=== PATIENT | female | born 1990 | race Caucasian/White ===

== ENCOUNTER 2018-10-06 19:56 | Emergency (ER) | payer OTHER, SELFPAY ==
[2018-10-06 19:57] VITALS: BP 130/90; PULSE 122; RESP 18; TEMP 36.2; O2SAT 100; BMI 33.7
--- NOTE | 2018-10-06 20:03 | EKG12_ITS ---
Test Reason : NUMB/TING Blood Pressure : / mmHG Vent. Rate : 106 BPM Atrial Rate : 106 BPM P-R Int : 156 ms QRS Dur : 084 ms QT Int : 334 ms P-R-T Axes : 019 046 019 degrees QTc Int : 443 ms Sinus tachycardia Otherwise normal ECG Confirmed by MARIAJOSE WOLFE, JUAN ([id number]), editor at large SUNIL QUEEN ([id number]) on 10/10/2018 4:45:39 PM Referred By: ZAIN Confirmed By:JUAN BILLY MD
[2018-10-06 20:15] LABS: Bedside Glucose 97 mg/dL (70-110)
[2018-10-06 20:19] VITALS: BP 152/104; PULSE 118; RESP 15; O2SAT 96
--- NOTE | 2018-10-06 20:25 | CT_ITS ---
STUDY: CT BRAIN WITHOUT CONTRAST REASON FOR EXAM: Female, 27 years old. Visual disturbance and arm pain RADIATION DOSAGE (If Supplied By Facility): CTDIvol = ( 44.99 ) mGy, DLP = ( 762.36 ) mGycm TECHNIQUE: Transaxial CT imaging of the brain was performed without administration of intravenous contrast material. Individualized dose optimization techniques were used for this CT. COMPARISON: None. FINDINGS: Normal soft tissue structures. Normal calvarium. Normal size ventricles and extra-axial spaces for the patient's age. Normal white matter tracts of the cerebral hemispheres. Normal basal ganglia and thalami. Normal brainstem. Normal cerebellum. There is no intracranial hemorrhage. There are no findings of an acute ischemic infarction. Normal visualized paranasal sinuses. CT/Brain/Head without Contrast IMPRESSION: Normal unenhanced CT scan of the brain. Electronically Signed: Babak Miles MD at 22:15 EST Tel , Service support ,
[2018-10-06 21:00] LABS: Absolute Lymphocyte Count 2.25 X10^3/ul (0.83-4.51); Absolute Neutrophil Count 4.3 X10^3/uL (2.0-7.7); Basophil# 0.02 X10^3/uL; Basophil% 0.3 % (0-1); Eosinophil# 0.09 X10^3/uL; Eosinophils% 1.2 % (0-5); Hematocrit 43.5 % (37-47); Hemoglobin 14.4 g/dl (12.0-15.0); Lymphocyte # 2.25 X10^3/ul (4.0); Lymphocyte % 31.2 % (19-41); Mean Corp Hgb Conc 33.1 g/gl (32-36); Mean Corpuscular Hgb 30.6 pg (27.0-32.0); Mean Corpuscular Volume 92.4 fL (81-99); Mean Platelet Vol. 11.7 fl (6.2-12.0); Monocyte# 0.52 X10^3/uL; Monocyte% 7.2 % (0-10); Neutrophil # 4.28 X10^3/uL (2.7-7.7); Neutrophil % 59.4 % (47-70); Platelet Count 180 K/mm3 (150-450); RBC Distribution Width CV 13.3 % (11.6-14.6); RBC Distribution Width SD 44.6 fl (35.1-43.9); Red Blood Count 4.71 M/mm3 (4.2-5.4); White Blood Count 7.2 K/mm3 (4.4-11.0)
--- NOTE | 2018-10-06 21:00 | RAD_ITS ---
STUDY: X-RAY CHEST REASON FOR EXAM: Female, 27 years old. Numbness in arms and coughing for 2 weeks TECHNIQUE: Frontal and lateral views of the chest. COMPARISON: None. FINDINGS: The lungs are clear and expanded. There is no demonstrated pleural abnormality. Normal size heart. Normal mediastinum and lázaro. Normal visualized pulmonary arteries. Normal visualized aortic arch and descending thoracic aorta. Normal visualized thoracic spine. Normal visualized ribs, clavicles, and shoulders. There is no demonstrated abnormality of the visualized soft tissue structures of the upper abdomen. RAD/Chest PA and Lateral IMPRESSION: Normal x-ray examination of the chest. Electronically Signed: Babak Miles MD at 22:28 EST Tel , Service support ,
[2018-10-06 21:03] LABS: Differential Indicated SCAN CRITERIA MET; POSITIVE COUNT YES; POSITIVE DIFFERENTIAL NO; POSITIVE MORPHOLOGY NO
[2018-10-06 21:05] LABS: Anion Gap 6 (5-15); BUN 12 mg/dL (7-18); BUN/Creat Ratio 16.7 RATIO (10-20); Calcium,Total 8.9 mg/dL (8.5-10.1); Chloride 108 mmol/L (98-107); Creatinine, Serum 0.72 mg/dL (0.55-1.02); EST Glomerular Filtration Rate 104 mL/min (>60); Est Glom Filt Rate - Afr Amer 126 mL/min (>60); Estimated Creatinine Clearance 102.25 ml/min; Glucose 91 mg/dL (74-106); Potassium 4.5 mmol/L (3.5-5.1); Sodium Level 136 mmol/L (136-145)
[2018-10-06 21:08] LABS: International Normalized Ratio 0.9; Partial Thromboplast Time 28.9 Seconds (24.1-36.2); Prothrombin Time (Protime)PT. 11.8 SECONDS (11.7-14.9)
[2018-10-06 21:14] LABS: Differential Comment SCANNED
[2018-10-06 21:37] LABS: Pregnancy, Serum, hCG Quali. NEGATIVE Negative (0-9 Nonpreg)
[2018-10-06 22:00] VITALS: BP 139/102; PULSE 105; RESP 16; O2SAT 97
--- NOTE | 2018-10-06 23:12 | ED.VISSUMM ---
- ER Visit Summary Date of Service: 10/06/18 Chief Complaint: Left arm pain and paresthesias History of Present Illness: The patient is a 27 F who presents with tingling and pain in her left shoulder and arm. Patient admits to some slight weakness. Patient denies any trauma or injury. Patient does admit to a headache. Patient states this is different from her migraine headaches. Patient states her headache is over the left side of her head. Patient also admits to a cough with some clear sputum. Patient denies any trauma or injury. Patient denies any lower extremity paresthesias or weakness. Physical Examination: Vital signs are stable. Patient is afebrile. Patient is in no acute distress. Oral mucosa is pink and moist. Neck is supple. Trachea is midline. There is no JVD noted. Heart was regular rate and rhythm. Lungs are clear and equal bilateral. Abdomen is soft. Bowel sounds are normal. There is no tenderness. There is no guarding noted. Skin is warm dry. Cranial nerves II through XII are intact. Strength is 5/5 bilaterally upper and lower extremities. There are no sensory deficits noted. Deep tendon reflexes were 2+/4 bilaterally. The remaining physical exam is within normal limits. Test Results: CT scan of the brain was obtained and was negative. EKG showed normal sinus rhythm with a rate of 106. There are no acute ST or T wave changes noted. CBC, basic metabolic profile, PT with INR, and PTT were obtained and were all normal. HCG was negative. PA and lateral chest x-ray was obtained and was normal. Emergency Department Course and Treatment: Patient was given a dose of morphine here for pain. Patient had no further focal deficits noted. Patient was given a prescription for prednisone. Patient was instructed to follow-up with her primary care physician in 5-7 days. Patient understood and was agreeable with the plan. All questions were answered. Disposition: Discharge home Impression: Paresthesias left upper extremity This note was generated with [employer] dictation software. It may contain incorrect words, spelling, and punctuation that were not noted in review of the chart prior to signing ED Disposition - Plan for ED Patient: Disposition: Home or Assisted Living Diagnosis: Paresthesias in left hand Instructions: ED Neuropathy Peripheral Prescriptions: predniSONE tablet 60 mg PO DAILY #15 tab Referrals: Lucas Reeves MD [Primary Care Provider] -
[2018-10-06 23:24] VITALS: BP 134/94; PULSE 89; RESP 20; O2SAT 98
[2018-10-06] MEDS: Morphine 4 MG/ML Syringe IV (23:24)
[2018-10-06] MEDS: predniSONE 20 MG Tablet 60 MG PO (23:27)
[2018-10-07 00:06] VITALS: BP 123/78; PULSE 72; RESP 16; O2SAT 100
== END 2018-10-07 00:07 | disposition home or self-care (01) ==
PROVIDERS: Emergency Provider Emergency Medicine; Family Provider Family Medicine; PCP Family Medicine
DX: R20.2 Paresthesia of skin (principal)
CPT/HCPCS: 70450; 71046; 80048; 82962; 84703; 85025; 85610; 85730; 93005; 96374; 99285; A4216

== ENCOUNTER 2018-10-17 15:28 | Emergency (ER) | payer OTHER, SELFPAY ==
[2018-10-17 15:29] VITALS: BP 152/97; PULSE 111; RESP 17; TEMP 36.4; O2SAT 99; BMI 33.3
--- NOTE | 2018-10-17 15:50 | MRI_ITS ---
STUDY: MRA NECK WITH AND WITHOUT CONTRAST REASON FOR EXAM: Female, 27 years old. Headaches and neck pain TECHNIQUE: 3-D ouef-na-oqxilo (TOF) imaging was performed in an 1.5 T MRI scanner. Gadavist 7 IV was administered for the contrast enhanced images. COMPARISON: None. FINDINGS: RIGHT CAROTID ARTERIES: Normal right common carotid artery (CCA). Normal right common carotid bulb. Normal origin of the right internal carotid (ICA) artery without a hemodynamically significant stenosis. Normal visualized cervical portion of the right internal carotid artery. Normal origin of the right external carotid artery (ECA). LEFT CAROTID ARTERIES: Normal left common carotid artery (CCA). Normal left common carotid bulb. Normal origin of the left internal carotid (ICA) artery without a hemodynamically significant stenosis. Normal visualized cervical portion of the left internal carotid artery. Normal origin of the left external carotid artery (ECA). VERTEBRAL ARTERIES: Normal antegrade flow within the bilateral vertebral artery without a hemodynamically significant stenosis. MRI/MRA Neck WITH and W/O Contrast IMPRESSION: Normal bilateral cervical carotid and vertebral arteries. Electronically Signed: Darryn Calzada MD at 18:29 EST , Service support ,
--- NOTE | 2018-10-17 15:50 | MRI_ITS ---
STUDY: MRI BRAIN WITH AND WITHOUT CONTRAST REASON FOR EXAM: Female, 27 years old. Headache with blurred vision and neck pain TECHNIQUE: Standardized multiplanar fat and water weighted pulse sequences were obtained. Gadavist 7 IV was administered for the contrast portion of the examination. COMPARISON: None. FINDINGS: Normal size of the ventricles and extra-axial spaces for the patient's age. Normal white matter tracts of the supratentorial brain. Normal bilateral basal ganglia. Normal thalami. There is no extra-axial fluid accumulation. Normal flow voids within the major intracranial circulation suggesting patency by spin echo criteria. Normal venous enhancement. There is no enhancing intra-axial or extra-axial abnormality. Normal sella turcica, pituitary gland, infundibular stalk, optic chiasm and hypothalamus. Normal tectal plate and pineal gland. Normal midbrain, elena and medulla. Normal cerebellum. Normal basal cisterns. Normal bilateral temporal bones. Normal bilateral internal auditory canals. No demonstrated orbital abnormality, within the constraints of a routine brain study. Normal visualized paranasal sinuses. Normal calvarium and skull base. Normal visualized soft tissue structures. Normal visualized upper cervical spine. MRI/Brain W/WO Contrast IMPRESSION: Normal unenhanced and enhanced MRI of the brain. Electronically Signed: Darryn Calzada MD at 18:25 EST , Service support ,
--- NOTE | 2018-10-17 15:53 | MRI_ITS ---
STUDY: MRA OF THE HEAD WITHOUT CONTRAST REASON FOR EXAM: Female, 27 years old. Headache and blurred vision TECHNIQUE: 3-D yuuv-qa-iqyjju (TOF) imaging was performed with MIPs. The study was performed unenhanced. COMPARISON: None. FINDINGS: Normal bilateral petrous carotid arteries. Normal right cavernous carotid artery with a normal supraclinoid bifurcation. Normal left cavernous carotid artery with a normal supraclinoid bifurcation. Normal right A1 segments of the anterior cerebral artery. Normal left A1 segments of the anterior cerebral artery. Normal intact anterior communicating artery (ACOM). Normal bilateral A2 segments of the anterior cerebral arteries. Normal right M1 and M2 segments of the middle cerebral arteries, with a normal M1 bifurcation. Normal left M1 and M2 segments of the middle cerebral arteries, with a normal M1 bifurcation. Normal right posterior communicating artery (PCOM). Left posterior communicating artery not visualized consistent with normal variant Normal bilateral vertebral arteries. Normal basilar artery with a normal basilar bifurcation. The visualized bilateral superior cerebellar (SCA) arteries are normal. Normal bilateral P1, P2 and visualized P3 segments of the posterior cerebral arteries. There is no demonstrated aneurysm of the [place] of [place]. There is no major vessel occlusion or hemodynamically significant stenosis. There is no demonstrated abnormality of the visualized brain. MRI/MRA Head ONLY without Contrast IMPRESSION: Normal MRA of the head Electronically Signed: Darryn Calzada MD at 18:27 EST , Service support ,
--- NOTE | 2018-10-17 15:54 | ED.VISSUMM ---
- ER Visit Summary Date of Service: 10/17/18 Chief Complaint: [] Left-sided headache, visual disturbance, left neck pain, left arm numbness and weakness intermittent symptoms for weeks History of Present Illness: The patient is a 27 F [] his past history reports she has had the above symptoms for weeks, she was seen in the emergency department recently labs head CT were negative she was referred to her primary care physician who could not see her until sometime next week she had recurrence of all the above and she came back to the emergency department today for evaluation Indicates she will suddenly have a sense of pain to her head decreased vision to the left eye, and a sense that there is shooting discomfort down her left lower extremity, she has no right-sided symptoms, these episodes are very transient she is currently not having any she also reports when she tries to turn her head to the left it causes some very mild pain but does not reproduce her left arm discomfort, she has no past history no fever no cough 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 has had no injury denies being but she indicates she does have a history of intermittent headache disorder, not clear if she actually is never diagnosed with migraine headaches Physical Examination: [] 155/80 General, no distress resting comfortably HEENT is generally unremarkable The neck is supple no adenopathy, she is able to rotate her head left and right when she turns to the left she complains of limited range of motion the carotid upstrokes are normal there is no pain to palpation of the neck or the anterior neck, or the posterior C-spine Cardiovascular, regular rate and rhythm Lungs, clear bilateral Abdomen, soft nontender Extremities, no clubbing cyanosis or edema, upper and lower extremities have full range of motion normal pulses Neurologic, awake alert answering questions appropriately moving all 4 extremities her cranial nerves are normal motor sensory cerebellar normal NIH 0 Test Results: [] Emergency Department Course and Treatment: [] Explained to her given all the above the differentials rather extensive she presents again with similar symptoms she was unable to see her family physicians for outpatient management given all the above will obtain MRI screening labs and reevaluate The patient had an MRA head and neck, MRI brain, the studies were unremarkable showing no signs of stroke tumor aneurysm normal carotids I had a long conversation with the patient and I spent to the exact etiology of all the above is unclear I question whether she had a history of chronic headache or migraine disorder she was not really sure during her visit last time to the ED suggest that she did have migraine headaches at this time since will be instructed follow-up with all of her outpatient providers for further management, she will be given a referral to Dr. Sharpe of neurology she will continue to use whatever normal medication she uses for headaches while she is comfortable with this plan Treatment Plan: [] Disposition: [] Home stable, please note later the patient did recall always having migraine headaches, she indicates to me she could not get the point with her physicians for management and then indicated to nurses she had an appointment tomorrow with her outpatient providers Impression: [] Intermittent left-sided headache causing left upper extremity paresthesias, left-sided neck discomfort This note was generated with [employer] dictation software. It may contain incorrect words, spelling, and punctuation that were not noted in review of the chart prior to signing ED Disposition - Plan for ED Patient: Instructions: ED Cephalgia Unspecified, ED Neuropathy Peripheral Referrals: Dillan Sharpe MD [STAFF PHYSICIAN] - Lucas Reeves MD [Primary Care Provider] - Additional Instructions: Follow-up with all of your outpatient providers make an appoint to see Dr. Sharpe of neurology and return for change in symptoms
[2018-10-17 16:12] LABS: Absolute Lymphocyte Count 3.38 X10^3/ul (0.83-4.51); Absolute Neutrophil Count 5.9 X10^3/uL (2.0-7.7); Basophil# 0.04 X10^3/uL; Basophil% 0.4 % (0-1); Eosinophil# 0.09 X10^3/uL; Eosinophils% 0.9 % (0-5); Hematocrit 44.4 % (37-47); Hemoglobin 14.4 g/dl (12.0-15.0); Lymphocyte # 3.38 X10^3/ul (4.0); Lymphocyte % 32.4 % (19-41); Mean Corp Hgb Conc 32.4 g/gl (32-36); Mean Corpuscular Hgb 30.6 pg (27.0-32.0); Mean Corpuscular Volume 94.3 fL (81-99); Mean Platelet Vol. 10.3 fl (6.2-12.0); Monocyte# 0.89 X10^3/uL; Monocyte% 8.5 % (0-10); Neutrophil % 56.6 % (47-70); POSITIVE COUNT NO; POSITIVE DIFFERENTIAL NO; POSITIVE MORPHOLOGY NO; Platelet Count 313 K/mm3 (150-450); RBC Distribution Width CV 13.4 % (11.6-14.6); RBC Distribution Width SD 44.6 fl (35.1-43.9); Red Blood Count 4.71 M/mm3 (4.2-5.4); White Blood Count 10.4 K/mm3 (4.4-11.0)
[2018-10-17 16:49] LABS: Anion Gap 10 (5-15); BUN 15 mg/dL (7-18); BUN/Creat Ratio 22.2 RATIO (10-20); Calcium,Total 8.6 mg/dL (8.5-10.1); Chloride 105 mmol/L (98-107); Creatinine, Serum 0.68 mg/dL (0.55-1.02); EST Glomerular Filtration Rate 111 mL/min (>60); Est Glom Filt Rate - Afr Amer 134 mL/min (>60); Estimated Creatinine Clearance 108.26 ml/min; Glucose 104 mg/dL (74-106); Potassium 3.5 mmol/L (3.5-5.1); Sodium Level 141 mmol/L (136-145)
[2018-10-17 18:26] VITALS: BP 122/83; PULSE 105; RESP 16; O2SAT 96
[2018-10-17] MEDS: HYDROcodone Bitartrate/Apap 5/325 Tablet PO (18:26)
--- NOTE | 2018-10-17 19:07 | ED.DEP ---
ED Disposition - Plan for ED Patient: Instructions: ED Neuropathy Peripheral, ED Cephalgia Unspecified Referrals: Lucas Reeves MD [Primary Care Provider] - Dillan Sharpe MD [STAFF PHYSICIAN] - Additional Instructions: Follow-up with all of your outpatient providers make an appoint to see Dr. Sharpe of neurology and return for change in symptoms
--- NOTE | 2018-10-17 19:37 | ED.RN ---
THIS RN ENTERRED PT ROOM TO DISCHARGE PT. PT CRYING HYSTERICALLY SAYING, WHY WON'T HE HELP ME, HE IS NOT HELPING ME. PT REORTS THAT SHE IS HAVING CONTINUED HEADACHE, THE MEDICATION SHE RECEIVED WAS NOT HELPFUL. PT HYPERVENTILATING ASKING FOR SOMETHING FOR PAIN AND ANXIETY. THIS RN LEFT PT IN SAFE PLACE, AND SPOKE WITH DR. MENSAH. PER DR. MENSAH, PT IS NOT RECEIVING ANY MORE MEDICATION, SHE NEEDS TO FOLLOW UP WITH PRIMARY CARE AND NEUROLOGY FOR CHRONIC ISSUES. HER TESTS TODAY WERE NEGATIVE, AND WE DO NOT USE NARCOTICS TO TREAT MIGRAINE PAIN. THIS RN RE-ENTERED PT ROOM TO DISCHARGE PT. COMTINUED COMPLAINTS THIS RN SPOKE WITH THEM EXPLAINING THE EXPLANATION GIVEN FROM DR. MENSAH. CHARGE NURSE AXEL INFORMED.
--- NOTE | 2018-10-17 19:52 | ED.RN ---
PT IS REFUSING TO LEAVE BECAUSE SHE WANTS MORE PAIN MEDICINE. IT WAS EXPLAINED THAT SHE NEEDS TO FOLLOW UP WITH HER PCP AND NEUROLOGIST. PT [facility]. PT WAS GIVEN A MARY DAVE REQUESTED. IV REMOVED AND GIVEN HER DC INSTRUCTIONS. PT'S S.O. VERBALIZED UNDERSTANDING.
== END 2018-10-17 19:56 | disposition home or self-care (01) ==
LOC: ED 16:00
PROVIDERS: Emergency Provider Emergency Medicine; Family Provider Family Medicine; PCP Family Medicine
DX: R51 Headache (principal); R20.2 Paresthesia of skin; R53.1 Weakness; H54.62 Unqualified visual loss, left eye, normal vision right eye
CPT/HCPCS: 70544; 70549; 70553; 80048; 85025; 99284; A9585; J7030; J7040

== ENCOUNTER → 2018-12-19 | Outpatient (CLI) | payer OTHER, SELFPAY ==
[2018-12-26 10:52] LABS: HPV Reflexed? NOT INDICATED
== END | disposition home or self-care (01) ==
LOC: LABSPEC 17:32
PROVIDERS: Family Provider Family Medicine; PCP Family Medicine; Visit Provider Obstetrics & Gynecology
DX: Z12.4 Encounter for screening for malignant neoplasm of cervix (principal)
CPT/HCPCS: 88175; G0145

== ENCOUNTER → 2018-12-20 | Outpatient (CLI) | payer OTHER, SELFPAY | END | disposition home or self-care (01) | LOC: LABSPEC 09:11 | PROVIDERS: Family Provider Family Medicine; PCP Family Medicine; Referring Provider Obstetrics & Gynecology; Visit Provider Obstetrics & Gynecology | DX: Z12.4 Encounter for screening for malignant neoplasm of cervix (principal) ==

== ENCOUNTER → 2020-02-05 | Outpatient (CLI) | payer OTHER, SELFPAY ==
[2020-02-05 20:15] LABS: Chlamydia Trachomatis by PCR Negative (Negative); Neisserai gonorrhoeae by PCR Negative (Negative); Probe Check PASS; Sample Adequacy Control PASS; Specimen Processing Control PASS
== END | disposition home or self-care (01) ==
PROVIDERS: Visit Provider Obstetrics & Gynecology
DX: Z11.3 Encounter for screening for infections with a predominantly sexual mode of transmission (principal)
CPT/HCPCS: 87491; 87591

== ENCOUNTER → 2020-02-19 11:57 | Outpatient (CLI) | payer OTHER, SELFPAY ==
[2020-02-19 14:00] LABS: Absolute Lymphocyte Count 1.65 X10^3/uL (0.83-4.51); Absolute Neutrophil Count 5.3 X10^3/uL (2.0-7.7); Basophil# 0.02 X10^3/uL; Basophil% 0.3 % (0-1); Color, Urine Yellow (Yellow); Eosinophil# 0.02 X10^3/uL; Eosinophils% 0.3 % (0-5); Glucose, Dipstick Normal (Normal); Hematocrit 42.5 % (37-47); Hemoglobin 14.1 g/dL (12.0-15.0); Leukocyte Esterase-Dipstick 500 /ul (Negative); Lymphocyte # 1.65 X10^3/ul (4.0); Mean Corp Hgb Conc 33.2 g/dL (32-36); Mean Corpuscular Hgb 30.3 pg (27.0-32.0); Mean Corpuscular Volume 91.4 fL (81-99); Mean Platelet Vol. 11.9 fl (6.2-12.0); Monocyte# 0.48 X10^3/uL; Monocyte% 6.4 % (0-10); NRBC Flagged by Analyzer 0 % (0-5); Neutrophil # 5.32 X10^3/uL (2.7-7.7); Neutrophil % 70.7 % (47-70); Nitrite-Dipstick Negative (Negative); Occult Blood-Urine 25 /ul (Negative); Platelet Count 255 K/mm3 (150-450); Protein-Dipstick 30 mg/dl (Negative); RBC Distribution Width CV 11.9 % (11.6-14.6); RBC Distribution Width SD 39.7 fl (35.1-43.9); Red Blood Count 4.65 M/mm3 (4.2-5.4); Specific Gravity, Urine 1.025 (1.002-1.030); Urine Bilirubin Dipstick Negative (Negative); Urine Clarity Turbid (Clear); Urine Urobilinogen 1 mg/dl (Normal); White Blood Count 7.5 K/mm3 (4.4-11.0)
[2020-02-19 14:11] LABS: Ketone-Dipstick 150 mg/dl (Negative)
[2020-02-19 14:18] LABS: Amphetamine Urine VISTA NEGATIVE (<1000 ng/mL); Barbiturate Urine VISTA NEGATIVE (< 200 ng/mL); Benzodiazepine Urine VISTA NEGATIVE (< 200 ng/mL); Cocaine Urine VISTA NEGATIVE (< 300 ng/mL); Ecstacy Urine VISTA NEGATIVE (< 500 ng/mL); Methadone Urine VISTA NEGATIVE (< 300 ng/mL); PCP Urine VISTA NEGATIVE (< 25 ng/mL); THC Urine VISTA NEGATIVE (< 50 ng/mL); Vista UDS pH Range 5
[2020-02-19 14:55] LABS: HIV - WCH Non-Reactive (Nonreactive); Hepatitis B Surface Antigen Non-Reactive (Nonreactive); Hepatitis C Antibody Non-Reactive (Nonreactive)
[2020-02-21 01:39] LABS: Prenatal RPR NONREACTIVE (NONREACTIVE)
== END ==
PROVIDERS: Visit Provider Obstetrics & Gynecology
DX: Z34.81 Encounter for supervision of other normal pregnancy, first trimester (principal)
CPT/HCPCS: 36415; 80307; 81002; 84443; 85025; 86703; 86762; 86803; 87340

== ENCOUNTER 2020-02-19 12:31 | Emergency (ER) | payer OTHER, SELFPAY ==
[2020-02-19 12:32] VITALS: BP 130/72; PULSE 93; RESP 15; TEMP 37.1; O2SAT 97; BMI 34.2
--- NOTE | 2020-02-19 12:55 | ED.VIS.GEN ---
History of Present Illness Chief Complaint: Nausea/Vomiting Informant: Patient Onset: Weeks Narrative: G2, P1 7 weeks 6-day gestation sent from OB office for concerns for dehydration and ketones in the urine. 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 Seen in the office today reported lost 10 pounds with ketones and sent here for IV fluids. Denies abdominal pain. Denies urinary symptoms. States heart tones 163 in the office. Denies any vaginal bleeding discharge or clots. Similar events with last . Prior similar symptoms: Yes Past Medical History - Allergies and Home Meds Allergies/Adverse Reactions: Allergies iodine Allergy (Verified 02/19/20 12:32) Hives Penicillins Allergy (Verified 02/19/20 12:32) Hives shellfish derived Allergy (Verified 02/19/20 12:32) Hives Primary Care Physician: [facility] Doctor,Out of [NON-STAFF] - Past Medical History: - - Hyperemesis gravidarum Smoking Status: Never smoker Review of Systems General: Denies: Chills, Fever, Sweats Eyes: Denies: Visual changes - bilaterally, Diplopia ENT: Denies: Rhinorrhea, Sore throat Cardiovascular: Denies: Chest pain, Palpitations Respiratory: Denies: Dyspnea, Cough, Dyspnea on exertion Gastrointestinal: Reports: Nausea, Vomiting. Denies: Abdominal pain, Diarrhea, Melena, Hematochezia Genitourinary: Denies: Dysuria, Hematuria, Frequency Musculoskeletal: Denies: Back pain, Extremity Pain Skin: Denies: Rash, Wounds Neurological: Denies: Headache, Weakness, Numbness Physical Exam Vital Signs/Narrative: Vital Signs Temp Pulse Resp BP Pulse Ox 02/19/20 12:32 98.7 F 93 15 130/72 H 97 Inital Vital Signs reviewed: Yes General: Well nourished, Well developed, No Acute Distress Head: Normocephalic, Atraumatic Eyes: Perrl, EOMI ENT: No rhinorrhea, - - Mild dry mucosal membranes Neck: Supple, Nontender Cardiovascular: Regular rate, Regular rhythm, No murmurs Respiratory: No distress, CTA bilaterally, Chest nontender Abdomen: Soft, Nontender, Nondistended, Normal bowel sounds Back: Nontender, Normal Inspection Extremities: Nontender, No edema Skin: Normal color, No rash Neurological: Alert, Oriented x3, Cranial nerves II-XII grossly intact, Normal Strength, Normal Sensation Psychological: Normal affect, Normal Mood Diagnostic/Tx/Re-eval Abnormal Lab Results 02/19/20 13:20 Sodium 137 Potassium 3.6 Chloride 102 Carbon Dioxide 26.0 Anion Gap 9 BUN 9 Creatinine 0.68 Estim Creat Clear Calc 106.36 Est GFR (MDRD) Af Amer 133 Est GFR (MDRD) Non-Af 110 BUN/Creatinine Ratio 13.3 Glucose 75 Calcium 9.1 - Medical Decision Making Patient nontoxic vital signs stable mild dry mucosal membranes. After history hyperemesis gravidarum. Order for 2 L of fluid, IV Phenergan. Electrolytes are normal. She is feeling better tolerating oral intake, pending urine analysis at this time for reevaluation. Plan to discharge home after results. Patient does have prescription of Phenergan and Zofran at home. ED Disposition - Plan for ED Patient: Disposition: Home or Assisted Living Diagnosis: Hyperemesis gravidarum, First trimester Instructions: Hyperemesis Gravidarum (Severe Morning Sickness) Referrals: [facility] Doctor,Out of [NON-STAFF] - Ling Byrd MD [STAFF PHYSICIAN] - 3-5 Days
[2020-02-19] MEDS: proMETHazine 25 MG/ML Syringe 12.5 MG IV ×2 (13:15→18:17)
[2020-02-19 13:42] LABS: Anion Gap 9 (5-15); BUN 9 mg/dL (7-18); BUN/Creat Ratio 13.3 RATIO (10-20); Calcium,Total 9.1 mg/dL (8.5-10.1); Chloride 102 mmol/L (98-107); Creatinine, Serum 0.68 mg/dL (0.55-1.02); EST Glomerular Filtration Rate 110 mL/min (>60); Est Glom Filt Rate - Afr Amer 133 mL/min (>60); Estimated Creatinine Clearance 106.36 ml/min; Glucose 75 mg/dL (74-106); Potassium 3.6 mmol/L (3.5-5.1); Sodium Level 137 mmol/L (136-145)
[2020-02-19] MEDS: 0.9% Normal Saline 1,000 ML 1000 ML IV ×2 (13:52→14:31)
[2020-02-19 15:00] VITALS: BP 128/78; PULSE 88; RESP 16; O2SAT 99
[2020-02-19] MEDS: 0.9% Normal Saline 1,000 ML 999 ML IV (16:16)
[2020-02-19 16:34] LABS: Color, Urine Yellow (Yellow); Glucose, Dipstick Normal (Normal); Leukocyte Esterase-Dipstick 100 /ul (Negative); Nitrite-Dipstick Negative (Negative); Occult Blood-Urine Negative /ul (Negative); Protein-Dipstick 15 mg/dl (Negative); Specific Gravity, Urine 1.025 (1.002-1.030); Urine Bilirubin Dipstick Negative (Negative); Urine Clarity Clear (Clear); Urine Urobilinogen Normal (Normal)
[2020-02-19 16:39] LABS: Ketone-Dipstick 150 mg/dl (Negative)
[2020-02-19 17:19] VITALS: BP 127/87; PULSE 85; RESP 18; O2SAT 99
[2020-02-19 18:08] VITALS: BP 128/79; PULSE 87; RESP 16; O2SAT 99
== END 2020-02-19 18:18 | disposition home or self-care (01) ==
PROVIDERS: Emergency Provider Emergency Medicine
DX: O21.0 Mild hyperemesis gravidarum (principal); Z3A.01 Less than 8 weeks gestation of pregnancy
CPT/HCPCS: 80048; 81002; 96361; 96374; 96376; 99284; J7030; A4216

== ENCOUNTER 2020-02-20 18:46 | Emergency (ER) | payer OTHER, SELFPAY ==
[2020-02-19 12:32] VITALS: BMI 34.2
[2020-02-20 18:49] VITALS: BP 133/88; PULSE 105; PULSE 115; RESP 18; TEMP 36.5; O2SAT 100; O2SAT 98; BMI 34.2
--- NOTE | 2020-02-20 19:11 | ED.DCSUM_ITS ---
History of Present Illness Chief Complaint: Nausea/Vomiting Informant: Patient Onset: Today Narrative: 29-year-old G2, P1 at approximately 8 weeks presents with concern for nausea and vomiting. States that she was awakened approximately 12 AM this morning which is now 19 hours later and has had intermittent profuse vomiting since that time. States that she has been unable to hold anything down. States that she is struggled with vomiting throughout her . Took 2 Phenergan as well as Zofran since that time without relief. Was written for rectal Phenergan by her OBGYN Dr. Sg Alcazar but was advised to come to the emergency department for rehydration and further evaluation. Patient denies any abdominal pain, vaginal bleeding or discharge. Past Medical History - Allergies and Home Meds Allergies/Adverse Reactions: Allergies iodine Allergy (Verified 02/20/20 18:48) Hives Penicillins Allergy (Verified 02/20/20 18:48) Hives shellfish derived Allergy (Verified 02/20/20 18:48) Hives Primary Care Physician: Ling Byrd MD [STAFF PHYSICIAN] - Prior records reviewed: Yes Past Medical History: None Surgical History: no surgical history Lives: Spouse/ Significant Other Smoking Status: Never smoker Alcohol: None Drugs: None Review of Systems General: Denies: Chills, Fever, Sweats Eyes: Denies: Visual changes - bilaterally, Diplopia ENT: Denies: Rhinorrhea, Sore throat Cardiovascular: Denies: Chest pain, Palpitations Respiratory: Denies: Dyspnea, Cough, Dyspnea on exertion Gastrointestinal: Reports: Nausea, Vomiting. Denies: Abdominal pain, Diarrhea, Melena, Hematochezia Genitourinary: Denies: Dysuria, Hematuria, Frequency Musculoskeletal: Denies: Back pain, Extremity Pain Skin: Denies: Rash, Wounds Neurological: Denies: Headache, Weakness, Numbness Physical Exam Vital Signs/Narrative: Vital Signs Temp Pulse Resp BP Pulse Ox 02/20/20 18:49 97.7 F L 105 H 18 133/88 H 100 Inital Vital Signs reviewed: Yes General: Well nourished, Well developed, No Acute Distress Head: Normocephalic, Atraumatic Eyes: Perrl, EOMI ENT: Moist mucous membranes, No rhinorrhea Neck: Supple, Nontender Cardiovascular: Regular rate, Regular rhythm, No murmurs Respiratory: No distress, CTA bilaterally, Chest nontender Abdomen: Soft, Nontender, Nondistended, Normal bowel sounds Back: Nontender, Normal Inspection Extremities: Nontender, No edema Skin: Normal color, No rash Neurological: Alert, Oriented x3, Cranial nerves II-XII grossly intact, Normal Strength, Normal Sensation Psychological: Normal affect, Normal Mood Diagnostic/Tx/Re-eval Laboratory Data 02/20/20 22:20 Urine Color Yellow Urine Clarity Clear Urine pH 6.0 Ur Specific [place] 1.025 Urine Protein 15 H Urine Glucose (UA) Normal Urine Ketones 150 H Urine Occult Blood 10 H Urine Nitrite Negative Urine Bilirubin Negative Urine Urobilinogen Normal Ur Leukocyte Esterase 25 H Urine RBC 0 SEEN Urine WBC 0 SEEN Ur Squamous Epith Cells 0-5 SEEN Urine Bacteria RARE Urine Mucus 0 SEEN - Medical Decision Making Patient appears well nontoxic. Vital signs within normal limits. Patient in 2 L of normal saline given ketonuria. She was also first given Zofran and then Phenergan which resolved her vomiting. Advised on suppository Phenergan prescribed by her MEDICAL DOCTOR MD. Asked to follow-up with her MEDICAL DOCTOR MD tomorrow. Asked to return for new or worsening symptoms. Patient agreeable and discharged home in stable condition. ED Disposition - Plan for ED Patient: Disposition: Home or Assisted Living Diagnosis: Vomiting during Referrals: Ling Byrd MD [STAFF PHYSICIAN] -
[2020-02-20] MEDS: Ondansetron 4 MG/2 ML Vial IV (19:54)
[2020-02-20] MEDS: 0.9% Normal Saline 1,000 ML 1000 ML IV (19:54)
[2020-02-20] MEDS: 0.9% Normal Saline 1,000 ML 999 ML IV (21:14)
[2020-02-20] MEDS: proMETHazine 25 MG/ML Syringe 6.25 MG IV (21:14)
[2020-02-20 21:16] VITALS: RESP 17
[2020-02-20 22:28] LABS: Color, Urine Yellow (Yellow); Glucose, Dipstick Normal (Normal); Leukocyte Esterase-Dipstick 25 /ul (Negative); Mucous, Urine 0 SEEN /hpf (<or=2+); Nitrite-Dipstick Negative (Negative); Occult Blood-Urine 10 /ul (Negative); Protein-Dipstick 15 mg/dl (Negative); Red Blood Cells-Urine 0 SEEN /hpf (0-5); Specific Gravity, Urine 1.025 (1.002-1.030); Urine Bilirubin Dipstick Negative (Negative); Urine Clarity Clear (Clear); Urine Urobilinogen Normal (Normal); White Blood Cells 0 SEEN /hpf (0-5)
[2020-02-20 22:33] LABS: Ketone-Dipstick 150 mg/dl (Negative)
[2020-02-20 22:36] LABS: Bacteria RARE /hpf (None Seen); Squamous Epithelial Cells - UA 0-5 SEEN /hpf (5-10)
[2020-02-20 23:33] VITALS: BP 94/60
== END 2020-02-20 23:34 | disposition home or self-care (01) ==
PROVIDERS: Emergency Provider Emergency Medicine
DX: O26.891 Other specified pregnancy related conditions, first trimester (principal); R11.2 Nausea with vomiting, unspecified; Z3A.08 8 weeks gestation of pregnancy
CPT/HCPCS: 81001; 96361; 96374; 96375; 99285; J7030; A4216; J2405

== ENCOUNTER 2020-02-24 11:48 | Observation (INO) | payer OTHER, SELFPAY ==
[2020-02-24] VITALS (7 sets, daily range): BP systolic 108–132; BP diastolic 57–99; PULSE 95–144; RESP 16–18; TEMP 35.5–37.1; O2SAT 97–99; BMI 32.5; BMI 33.6
--- NOTE | 2020-02-24 12:00 | ED.VIS.GEN ---
History of Present Illness Chief Complaint: Nausea/Vomiting Detail of Chief Complaint: 8 weeks gestation Informant: Patient, Significant Other Onset: Weeks Context: Sudden Onset Timing: Continuous Quality: Continuous nausea and with vomiting Location: GI Current Severity: Moderate Maximum Severity: Severe Worsened by: Nothing specific Relieved by: Nothing Associated Symptoms: Thirst, palpitations, lightheadedness Narrative: Patient is a 29-year-old female who is . This is her second . She did have problems with nausea and vomiting during first . She is had problems with nausea vomiting during this . She has been prescribed Zofran and promethazine. States she is vomited 5 times since midnight. She vomited numerous times yesterday. She denies blood or coffee grounds in emesis. She denies constipation or diarrhea. She does report decreased urine output. She also reports significant weight loss since the onset of . Prior similar symptoms: Yes Recent Illness/Hospitalization: Yes - Past Medical History (1) Gestational hypertension Status: Acute Past Medical History - Allergies and Home Meds Allergies/Adverse Reactions: Allergies iodine Allergy (Verified 02/24/20 11:49) Hives Penicillins Allergy (Verified 02/24/20 11:49) Hives shellfish derived Allergy (Verified 02/24/20 11:49) Hives Primary Care Physician: NOT,DEFINED [NON-STAFF] - Prior records reviewed: Yes - To ER visit from February 18 and February 19 Surgical History: no surgical history, - - Vaginal delivery with vacuum assist for the first child Lives: Spouse/ Significant Other, With Family Smoking Status: Never smoker Alcohol: None Drugs: None Review of Systems General: Reports: Weight loss. Denies: Chills, Fever, Malaise, Subjective, Sweats Eyes: Denies: Visual changes - bilaterally, Blurred Vision - bilaterally ENT: Denies: Bilateral ear pain, Rhinorrhea, Sore throat Cardiovascular: Denies: Chest pain, Palpitations Respiratory: Denies: Dyspnea, Cough, Sputum, Dyspnea on exertion, Orthopnea Gastrointestinal: Reports: Abdominal pain, Nausea. Denies: Vomiting, Diarrhea, Constipation, Melena, Hematochezia Genitourinary: Denies: Dysuria, Hematuria, Frequency Musculoskeletal: Denies: Back pain, Extremity Pain Skin: Denies: Rash, Wounds Neurological: Denies: Headache, Weakness, Numbness Endocrine: Denies: Polyuria, Polydipsia Hematologic: Denies: Easy bruising Physical Exam Vital Signs/Narrative: Vital Signs Temp Pulse Resp BP Pulse Ox 02/24/20 11:49 96 F L 144 H 16 132/99 H 99 Inital Vital Signs reviewed: Yes General: Well nourished, Well developed, Obese, Acute Distress Head: Normocephalic, Atraumatic Eyes: Perrl, EOMI. Negative for: Pale conjunctiva, Scleral icterus ENT: No rhinorrhea, TM's clear, Dry mucous membranes. Negative for: Nasal congestion Neck: Supple, Nontender, No lymphadenopathy, No JVD Cardiovascular: Regular rhythm, No murmurs, Normal S1, Normal S2, Tachycardia Respiratory: No distress, CTA bilaterally, Chest nontender, Rales Abdomen: Soft, Nontender, Nondistended, Normal bowel sounds Rectal: Deferred Back: Nontender, Normal Inspection. Negative for: CVA tenderness Extremities: Nontender, No edema Skin: Normal color, No rash, No Trauma. Negative for: Cyanosis, Diaphoresis, Jaundice Neurological: Alert, Oriented x3, Cranial nerves II-XII grossly intact, Normal Strength, Normal Sensation Psychological: Normal affect, Normal Mood Diagnostic/Tx/Re-eval Laboratory Results 02/24/20 02/24/20 12:25 12:25 WBC 10.1 RBC 5.16 Hgb 15.8 H Hct 46.0 MCV 89.1 MCH 30.6 MCHC 34.3 RDW Std Deviation 39.6 RDW Coeff of Ish 12.3 Plt Count 272 MPV 10.9 Immature Gran % (Auto) 0.700 Neut % (Auto) 75.3 H Lymph % (Auto) 15.6 L [place] % (Auto) 7.7 Eos % (Auto) 0.3 Baso % (Auto) 0.4 Absolute Neuts (auto) 7.6 Absolute Lymphs (auto) 1.58 Nucleated RBC % 0 Sodium 139 Potassium 3.5 Chloride 109 H Carbon Dioxide 19.0 L Anion Gap 11 BUN 12 Creatinine 0.52 L Estim Creat Clear Calc 139.09 Est GFR (MDRD) Af Amer 179 Est GFR (MDRD) Non-Af 148 BUN/Creatinine Ratio 22.9 H Glucose 79 Calcium 9.2 BUN to creatinine ratio is elevated. White count is unremarkable. - Medical Decision Making Suspect patient is dehydrated. Heart rate 144 suspect she is significantly dehydrated. A liter of normal saline was ordered. 10 mg of Reglan was ordered for the nausea and vomiting. Since there was question of urinary tract infection and she was prescribed cephalexin this past Tuesday UA was obtained to assess specific gravity, ketones and determine if she has a urinary tract infection. She states she is not been able to keep any of the cephalexin doses down. Suspect patient's can require observation status versus full admission since this is her third visit in 5 days and she is markedly tachycardic and clinically dehydrated. Patient was reassessed at 08/17/2004. The first liter has infused. She has no urge to urinate. She states she still feels nauseous and does not want to attempt to drink anything. A liter of D5 half-normal was ordered to infuse over 1 hour. Patient's case was discussed with her supervisor stave finishing. Assign to observation status [facility] ED Disposition - Plan for ED Patient: Disposition: Acute [facility] Diagnosis: Hyperemesis gravidarum with dehydration, Sinus tachycardia seen on shelter monitor Referrals: NOT,DEFINED [NON-STAFF] -
[2020-02-24] MEDS: Metoclopramide 10 MG/2 ML Vial IV (12:31)
[2020-02-24] MEDS: 0.9% Normal Saline 1,000 ML 1000 ML IV (12:31)
[2020-02-24 12:37] LABS: Absolute Lymphocyte Count 1.58 X10^3/uL (0.83-4.51); Absolute Neutrophil Count 7.6 X10^3/uL (2.0-7.7); Basophil# 0.04 X10^3/uL; Basophil% 0.4 % (0-1); Eosinophil# 0.03 X10^3/uL; Eosinophils% 0.3 % (0-5); Hemoglobin 15.8 g/dL (12.0-15.0); Lymphocyte # 1.58 X10^3/ul (4.0); Lymphocyte % 15.6 % (19-41); Mean Corp Hgb Conc 34.3 g/dL (32-36); Mean Corpuscular Hgb 30.6 pg (27.0-32.0); Mean Corpuscular Volume 89.1 fL (81-99); Mean Platelet Vol. 10.9 fl (6.2-12.0); Monocyte# 0.78 X10^3/uL; Monocyte% 7.7 % (0-10); NRBC Flagged by Analyzer 0 % (0-5); Neutrophil # 7.62 X10^3/uL (2.7-7.7); Neutrophil % 75.3 % (47-70); Platelet Count 272 K/mm3 (150-450); RBC Distribution Width CV 12.3 % (11.6-14.6); RBC Distribution Width SD 39.6 fl (35.1-43.9); Red Blood Count 5.16 M/mm3 (4.2-5.4); White Blood Count 10.1 K/mm3 (4.4-11.0)
[2020-02-24 12:44] LABS: Anion Gap 11 (5-15); BUN 12 mg/dL (7-18); BUN/Creat Ratio 22.9 RATIO (10-20); Calcium,Total 9.2 mg/dL (8.5-10.1); Chloride 109 mmol/L (98-107); Creatinine, Serum 0.52 mg/dL (0.55-1.02); EST Glomerular Filtration Rate 148 mL/min (>60); Est Glom Filt Rate - Afr Amer 179 mL/min (>60); Estimated Creatinine Clearance 139.09 ml/min; Glucose 79 mg/dL (74-106); Potassium 3.5 mmol/L (3.5-5.1); Sodium Level 139 mmol/L (136-145)
[2020-02-24] MEDS: Dext 5%-0.45% NS 1,000 ML 1000 ML IV (13:19)
--- NOTE | 2020-02-24 13:34 | PCM.HP.OB ---
- Problem List (1) 8 weeks gestation of Status: Acute (2) Hyperemesis gravidarum with dehydration Status: Acute (3) Sinus tachycardia seen on electronic device monitor Status: Acute History Date of Admission: 02/24/20 Final TIM: 10/01/20 Final TIM Source: US <20 weeks Gestational age: 8 Weeks and 4 Days History of this : This is a 29 year-old, G [4], P [1021], at 8w4d weeks gestational age presenting with persistent nausea and vomiting. She has a history of hyperemesis gravidarum in her last . Today was her third visit to the hospital for rehydration this past week. In the ER she was found to have tachycardia and dehydration. Medical History: Medical History (Last Updated 02/24/20 @ 13:[address] Ling Alcazar MD) Vacuum-assisted vaginal delivery Z37.9 06/17/17 male, [place] Allergies iodine Allergy (Verified 02/24/20 11:49) Hives Penicillins Allergy (Verified 02/24/20 11:49) Hives shellfish derived Allergy (Verified 02/24/20 11:49) Hives Home Medications: Home Medications Ondansetron [Ondansetron Odt] 4 mg PO TID 02/20/20 Promethazine HCl 25 mg PO Q4H 02/20/20 Caplet 02/24/20 Smoking Status: Never smoker Alcohol: None Number of Fetus(es): 1 History Past Pregnancies: Past Pregnancies Delivery Date Name GA/ Weeks Outcome Route Wt Sex Labor Length Anesthesia Delivery Location Provider FOB Physical Exam Vitals: Vital Signs Temp Pulse Resp BP Pulse Ox 96 F L 144 H 16 132/99 H 99 02/24/20 11:49 02/24/20 11:49 02/24/20 11:49 02/24/20 11:49 02/24/20 11:49 Assessment/Plan All Active Problems (Last Updated 02/24/20 @ 13:[address] Ling Alcazar MD) Hyperemesis gravidarum with dehydration (Acute) Sinus tachycardia seen on electronic device monitor (Acute) 8 weeks gestation of (Acute) This is a 29 year-old, G [4], P [1], at 8w4d weeks gestational age. -Admit for IVF hydration, antiemetic therapy -Sips and chips -OB US
--- NOTE | 2020-02-24 14:24 | US_ITS ---
STUDY: FIRST TRIMESTER OBSTETRICAL ULTRASOUND REASON FOR EXAM: Female, 29 years old FHR, CRL -- HYPEREMESIS -- DEHYDRATION LMP: December 16, 2019. TECHNIQUE: Transvaginal TECHNICAL QUALITY: Adequate. PRIOR ULTRASOUND: None. FINDINGS: There is visualization of a single gestational sac in a normal intrauterine position. The mean sac diameter (MSD) measures 3.4 cm, indicating an estimated gestational age (EGA) of 8 weeks, 6 days. The gestational sac shape is within normal limits. There is a visualized yolk sac. The yolk sac measures 4.6 mm. The placenta is non-visualized. There is visualization of a live embryo. The crown-rump length (CRL) measures 2.1 cm, indicating an estimated gestational age (EGA) of 8 weeks, 6 days. There is demonstrated cardiac activity with a heart rate of 151 bpm. The estimated gestation age (EGA) by LMP is 10 weeks, 1 days. The estimated date of delivery (TIM) by LMP is September 21, 2020. The estimated gestation age (EGA) by US is 8 weeks, 6 days. The estimated date of delivery (TIM) by US is September 30, 2020. The uterus measures 11 cm x 7.1 cm x 5.5 cm. There is no demonstrated uterine fibroid. The cervix is closed. 2 small subchorionic hematomas are seen. The larger measures 1.4 cm x 1.4 cm x 0.9 cm. The right ovary measures 3.5 cm x 2.5 cm x 1.4 cm. There is no right ovarian cyst. There is no visualized right adnexal mass or complex lesion. The left ovary measures 3.2 cm x 3.1 cm x 1.7 cm. There is no left ovarian cyst. There is no visualized left adnexal mass or complex lesion. There is no fluid in the cul de sac. US/Init OB < 14Wks US IMPRESSION: Single live intrauterine gestation with mean gestational age of 8 weeks and 6 days. There are 2 small subchorionic hematomas Electronically Signed: Jamin Delong, at 8:39 EDT , Service support ,
[2020-02-24] MEDS: 0.9% Saline Lock 10 ML Syringe IV ×3 (14:55→18:31)
[2020-02-24] MEDS: Ondansetron 4 MG/2 ML Vial IV ×2 (15:05→21:11)
[2020-02-24] MEDS: proMETHazine 25 MG/ML Syringe 12.5 MG IV ×2 (15:57→22:05)
[2020-02-24] MEDS: Potassium Chloride 10 MEQ in Dext 5%-0.45% NS 1,000 ML 150 MEQ IV (17:05)
[2020-02-24] MEDS: Metoclopramide 10 MG/2 ML Vial 5 MG IV (18:31)
[2020-02-24 22:38] LABS: Mucous, Urine 0 SEEN /hpf (<or=2+); Red Blood Cells-Urine 0 SEEN /hpf (0-5)
[2020-02-24 22:43] LABS: Color, Urine Yellow (Yellow); Glucose, Dipstick 1000 mg/dl (Normal); Leukocyte Esterase-Dipstick 25 /ul (Negative); Nitrite-Dipstick Negative (Negative); Occult Blood-Urine Negative /ul (Negative); Protein-Dipstick 30 mg/dl (Negative); Specific Gravity, Urine 1.025 (1.002-1.030); Urine Bilirubin Dipstick Negative (Negative); Urine Clarity Clear (Clear); Urine Urobilinogen Normal (Normal)
[2020-02-24 22:47] LABS: Ketone-Dipstick 150 mg/dl (Negative)
[2020-02-24 22:51] LABS: White Blood Cells 0-5 SEEN /hpf (0-5)
[2020-02-24 22:55] LABS: Hyaline Cast 0-5 SEEN /lpf (0-5)
[2020-02-24 22:56] LABS: Fine Granular Cast- Urine 0-5 SEEN /lpf (0-5)
[2020-02-24 22:58] LABS: Squamous Epithelial Cells - UA 0-5 SEEN /hpf (5-10)
[2020-02-24 23:02] LABS: Bacteria 1+ /hpf (None Seen)
[2020-02-25] VITALS (7 sets, daily range): BP systolic 97–116; BP diastolic 59–83; PULSE 86–97; RESP 16–18; TEMP 36.7–37.2; O2SAT 97–100
[2020-02-25] MEDS: Potassium Chloride 10 MEQ in Dext 5%-0.45% NS 1,000 ML 150 MEQ IV (00:05)
[2020-02-25] MEDS: Metoclopramide 10 MG/2 ML Vial 5 MG IV ×4 (00:05→18:01)
[2020-02-25] MEDS: Ondansetron 4 MG/2 ML Vial IV ×3 (02:53→16:20)
[2020-02-25] MEDS: 0.45% Normal Saline 1,000 ML 150 ML IV (03:31)
[2020-02-25 05:52] LABS: Anion Gap 8 (5-15); BUN 5 mg/dL (7-18); BUN/Creat Ratio 13.3 RATIO (10-20); Calcium,Total 7.8 mg/dL (8.5-10.1); Chloride 110 mmol/L (98-107); Creatinine, Serum 0.38 mg/dL (0.55-1.02); EST Glomerular Filtration Rate 217 mL/min (>60); Est Glom Filt Rate - Afr Amer 263 mL/min (>60); Estimated Creatinine Clearance 190.33 ml/min; Glucose 77 mg/dL (74-106); Potassium 3.1 mmol/L (3.5-5.1); Sodium Level 137 mmol/L (136-145)
[2020-02-25] MEDS: proMETHazine 25 MG/ML Syringe 12.5 MG IV ×2 (06:19→14:00)
[2020-02-25] MEDS: 0.9% Saline Lock 10 ML Syringe IV ×8 (07:06→21:08)
[2020-02-25 08:17] LABS: AST(SGOT) 18 U/L (15-37); Alanine Aminotransfer ALT/SGPT 25 U/L (13-56); Albumin, Serum 2.8 g/dL (3.2-5.0); Alkaline Phosphatase 55 U/L (45-117); Bilirubin, Direct 0.34 mg/dL (0.00-0.30); Globulin 2.9 g/dL (2.2-4.2); Protein, Total 5.7 g/dL (6.4-8.2)
[2020-02-25] MEDS: Famotidine 200 MG/20 ML MDV 20 MG in 0.9% Normal Saline (Pres. free 8 ML 300 MG IV (08:32)
--- NOTE | 2020-02-25 08:45 | PN.OBGYN_ITS ---
Patient Problems: Active and Suspected Problems (Last Updated 02/24/20 @ 13:[address] Ling Alcazar MD) Hyperemesis gravidarum with dehydration (Acute) Sinus tachycardia seen on curbstone setter (Acute) 8 weeks gestation of (Acute) Subjective: Reports nausea persists. No vomiting since yesterday afternoon however. She voided once overnight and once this morning. Denies pain. Objective: AVSS - Physical Exam Vitals/I&O's: Vital Signs Temp Pulse Resp BP Pulse Ox 98.5 F 88 18 103/68 99 02/25/20 08:21 02/25/20 08:21 02/25/20 08:21 02/25/20 08:21 02/25/20 08:21 Oxygen Delivery Method Room Air Weight: 90.1 kg Body Mass Index (BMI) 33.6 Finger Stick Blood Glucose 97 Intake and Output for Last 24 Hours 02/23/20 02/24/20 02/25/20 23:59 23:59 23:59 Intake Total 3568.50 / 3608.50 1110.0 / 1110.0 Output Total 200 / 200 Balance 3568.50 / 3408.50 910.0 / 910.0 General: Alert, Oriented x3, Cooperative, No apparent distress HEENT: Atraumatic, Normocephalic Lungs: Normal air movement Cardiovascular: Regular rate, Regular Rhythm, Normal S1, Normal S2 Abdomen: Soft, Non Tender, Non-Distended Extremities: No edema, No Calf Tenderness Neurological: Neuro grossly intact Psych/Mental Status: Normal Affect, Appropriate, Alert and oriented to time, place, person, mood and affect Laboratory Results 02/24/20 12:25: WBC 10.1, RBC 5.16, Hgb 15.8 H, Hct 46.0, MCV 89.1, MCH 30.6, MCHC 34.3, RDW Std Deviation 39.6, RDW Coeff of Ish 12.3, Plt Count 272, MPV 10.9, Immature Gran % (Auto) 0.700, Neut % (Auto) 75.3 H, Lymph % (Auto) 15.6 L, [place] % (Auto) 7.7, Eos % (Auto) 0.3, Baso % (Auto) 0.4, Absolute Neuts (auto) 7.6, Absolute Lymphs (auto) 1.58, Nucleated RBC % 0 02/24/20 12:25: Sodium 139, Potassium 3.5, Chloride 109 H, Carbon Dioxide 19.0 L , Anion Gap 11, BUN 12, Creatinine 0.52 L, Estim Creat Clear Calc 139.09, Est GFR (MDRD) Af Amer 179, Est GFR (MDRD) Non-Af 148, BUN/Creatinine Ratio 22.9 H, Glucose 79, Calcium 9.2 02/24/20 22:25: Urine Color Yellow, Urine Clarity Clear, Urine pH 6.0, Ur Specific [place] 1.025, Urine Protein 30 H, Urine Glucose (UA) 1000 H, Urine Ketones 150 H, Urine Occult Blood Negative, Urine Nitrite Negative, Urine Bilirubin Negative, Urine Urobilinogen Normal, Ur Leukocyte Esterase 25 H, Urine RBC 0 SEEN, Urine WBC 0-5 SEEN, Ur Squamous Epith Cells 0-5 SEEN, Urine Bacteria 1+, Hyaline Casts 0-5 SEEN, Fine Granular Casts 0-5 SEEN, Urine Mucus 0 SEEN 02/25/20 05:24: Sodium 137, Potassium 3.1 L, Chloride 110 H, Carbon Dioxide 19.0 L, Anion Gap 8, BUN 5 L, Creatinine 0.38 L, Estim Creat Clear Calc 190.33, Est GFR (MDRD) Af Amer 263, Est GFR (MDRD) Non-Af 217, BUN/Creatinine Ratio 13.3, Glucose 77, Calcium 7.8 L, Total Bilirubin 1.00, Direct Bilirubin 0.34 H, AST 18, ALT 25, Alkaline Phosphatase 55, Total Protein 5.7 L, Albumin 2.8 L, Globulin 2.9, Albumin/Globulin Ratio 1.0 Current Medications Acetaminophen (Tylenol) 650 mg PO Q6H PRN PRN PRN Reason: Pain Score 1-10/Temp > 100.7 F Docusate Sodium (Colace) 100 mg PO BID PRN PRN PRN Reason: Constipation Famotidine 20 mg/ Sodium (Chloride) 10 mls @ 300 mls/hr IV Q24 EDITH Last Admin: 02/25/20 08:32 Dose: 300 mls/hr Documented by: Sodium Chloride () 250 mls @ 15 mls/hr IV .[id number] PRN PRN Reason: Saline Flush Last Infusion: 02/24/20 17:10 Dose: 0 mls/hr Documented by: Sodium Chloride () 250 mls @ 15 mls/hr IV .[id number] PRN PRN Reason: Additional IVPB Infusion Thiamine HCl 100 mg/ Sodium (Chloride) 51 mls @ 200 mls/hr IV DAILY EDITH Multivitamins 10 ml/ Potassium Chloride 30 meq/ Sodium Chloride 525 mls @ 150 mls/hr IV .[id number] ONE Stop: 02/25/20 12:29 Metoclopramide HCl (Reglan) 5 mg IV Q6H EDITH Last Admin: 02/25/20 05:38 Dose: 5 mg Documented by: Ondansetron HCl (Zofran) 4 mg IV Q6H EDITH Last Admin: 02/25/20 08:37 Dose: 4 mg Documented by: Promethazine HCl (Phenergan) 12.5 mg IV Q4H PRN PRN Reason: VOMITING Last Admin: 02/25/20 06:19 Dose: 12.5 mg Documented by: Sodium Chloride () 10 - 40 ml IV UD PRN PRN Reason: SALINE FLUSH Last Admin: 02/25/20 08:32 Dose: 10 ml Documented by: Medical Necessity - Tobacco Use Smoking Status: Never smoker Assessment/Plan All Active Problems (Last Updated 02/24/20 @ 13:[address] Ling Alcazar MD) Hyperemesis gravidarum with dehydration (Acute) Sinus tachycardia seen on curbstone setter (Acute) 8 weeks gestation of (Acute) This is a 29 year-old, G [4], P [1], at 8w5d weeks gestational age with hyperemsis gravidarum, hypokalemia -Continue antiemetics -Advanced to CLD -When 24h without vomiting, will transition to PO antiemetics. -IV MVI daily -IV K repletion
[2020-02-25] MEDS: Ondansetron ODT 4 MG Tablet PO (21:07)
[2020-02-26] MEDS: Metoclopramide 5 MG TABLET PO ×3 (00:32→12:08)
[2020-02-26 00:33] VITALS: BP 103/63; PULSE 83; RESP 16; TEMP 36.8; O2SAT 100
[2020-02-26] MEDS: Ondansetron ODT 4 MG Tablet PO ×3 (03:36→14:27)
[2020-02-26 03:37] VITALS: BP 120/77; PULSE 83; RESP 18; TEMP 36.8; O2SAT 100
[2020-02-26 06:10] VITALS: BP 109/71; PULSE 89; RESP 18; TEMP 36.7; O2SAT 100
[2020-02-26 06:34] LABS: Anion Gap 7 (5-15); BUN 4 mg/dL (7-18); BUN/Creat Ratio 8.7 RATIO (10-20); Calcium,Total 8.3 mg/dL (8.5-10.1); Chloride 106 mmol/L (98-107); Creatinine, Serum 0.46 mg/dL (0.55-1.02); EST Glomerular Filtration Rate 171 mL/min (>60); Est Glom Filt Rate - Afr Amer 207 mL/min (>60); Estimated Creatinine Clearance 157.23 ml/min; Glucose 97 mg/dL (74-106); Potassium 3.4 mmol/L (3.5-5.1); Sodium Level 137 mmol/L (136-145)
[2020-02-26 07:37] VITALS: BP 112/77; PULSE 88; RESP 18; TEMP 36.7; O2SAT 100
--- NOTE | 2020-02-26 08:46 | PCM.PN.OB ---
Patient Problems: Active and Suspected Problems (Last Updated 02/24/20 @ 13:[address] Ling Alcazar MD) Hyperemesis gravidarum with dehydration (Acute) Sinus tachycardia seen on traffic monitor specialist (Acute) 8 weeks gestation of (Acute) Subjective: Mild nausea since eating breakfast. Has no vomiting since admission however. She ate solids yesterday evening and again this morning. No complaints. She feels much better. - Physical Exam Vitals/I&O's: Vital Signs Temp Pulse Resp BP Pulse Ox 98.1 F 88 18 112/77 100 02/26/20 07:37 02/26/20 07:37 02/26/20 07:37 02/26/20 07:37 02/26/20 07:37 Oxygen Delivery Method Room Air Weight: 88.904 kg Body Mass Index (BMI) 33.6 Finger Stick Blood Glucose 97 Intake and Output for Last 24 Hours 02/24/20 02/25/20 02/26/20 23:59 23:59 23:59 Intake Total 3568.50 / 3608.50 2901.0 / 3051.0 250 / 250 Output Total 850 / 850 Balance 3568.50 / 3408.50 2051.0 / 2201.0 250 / 250 General: Alert, Oriented x3, Cooperative, No apparent distress HEENT: Atraumatic, Normocephalic Lungs: Clear to auscultation, Normal air movement Cardiovascular: Regular rate, Regular Rhythm, Normal S1, Normal S2 Abdomen: Soft, Non Tender, Non-Distended Extremities: No edema, No Calf Tenderness Neurological: Neuro grossly intact Psych/Mental Status: Normal Affect, Appropriate, Alert and oriented to time, place, person, mood and affect Laboratory Results 02/26/20 05:50: Sodium 137, Potassium 3.4 L, Chloride 106, Carbon Dioxide 24.0, Anion Gap 7, BUN 4 L, Creatinine 0.46 L, Estim Creat Clear Calc 157.23, Est GFR (MDRD) Af Amer 207, Est GFR (MDRD) Non-Af 171, BUN/Creatinine Ratio 8.7 L, Glucose 97, Calcium 8.3 L Current Medications Acetaminophen (Tylenol) 650 mg PO Q6H PRN PRN PRN Reason: Pain Score 1-10/Temp > 100.7 F Docusate Sodium (Colace) 100 mg PO BID PRN PRN PRN Reason: Constipation Famotidine 20 mg/ Sodium (Chloride) 10 mls @ 300 mls/hr IV Q24 EDITH Last Infusion: 02/25/20 08:34 Dose: Infused Documented by: Sodium Chloride () 250 mls @ 15 mls/hr IV .[id number] PRN PRN Reason: Saline Flush Last Infusion: 02/25/20 09:02 Dose: Infused Documented by: Sodium Chloride () 250 mls @ 15 mls/hr IV .[id number] PRN PRN Reason: Additional IVPB Infusion Thiamine HCl 100 mg/ Sodium (Chloride) 51 mls @ 200 mls/hr IV DAILY EDITH Last Infusion: 02/25/20 10:42 Dose: Infused Documented by: Metoclopramide HCl (Reglan) 5 mg PO Q6H EDITH Last Admin: 02/26/20 06:09 Dose: 5 mg Documented by: Ondansetron HCl (Zofran Odt) 4 mg PO Q6H EDITH Last Admin: 02/26/20 03:36 Dose: 4 mg Documented by: Promethazine HCl (Phenergan) 12.5 mg IV Q4H PRN PRN Reason: VOMITING Last Admin: 02/25/20 14:00 Dose: 12.5 mg Documented by: Sodium Chloride () 10 - 40 ml IV UD PRN PRN Reason: SALINE FLUSH Last Admin: 02/25/20 21:08 Dose: 10 ml Documented by: Medical Necessity - Tobacco Use Smoking Status: Never smoker Assessment/Plan All Active Problems (Last Updated 02/24/20 @ 13:[address] Ling Alcazar MD) Hyperemesis gravidarum with dehydration (Acute) Sinus tachycardia seen on traffic monitor specialist (Acute) 8 weeks gestation of (Acute) This is a 29 year-old, G [4], P [1], at 8w6d weeks gestational age with hyperemsis gravidarum, hypokalemia -Tolerates PO antiemetics -Hypokalemia improved -Will plan to d/c home after lunch.
--- NOTE | 2020-02-26 08:52 | DCINST_ITS ---
- Discharge Diagnoses Current Active Problems: Current Active and Chronic Problems (Last Updated 02/24/20 @ 13:[address] Ling Alcazar MD) Hyperemesis gravidarum with dehydration (Acute) Sinus tachycardia seen on library monitor (Acute) 8 weeks gestation of (Acute) Reason(s) for Visit for Discharge Instructions: Hyperemesis gravidarum, Dehydration You will use the following diet at home:: No restrictions Your food should be the consistency of: Regular Discharge Activity: Return to Normal Activity, No Restrictions, May Shower, May Take a Tub Bath Call your doctor if you observe: Fever of 101 or Higher, Inability to urinate, Shortness of breath, Chest pain, - - Persistent vomiting Instructions: ED Preg Morning Sickness Allergies/Adverse Reactions: Allergies iodine Allergy (Verified 02/24/20 15:07) Hives Penicillins Allergy (Verified 02/24/20 15:07) Hives shellfish derived Allergy (Verified 02/24/20 15:07) Hives Medications to take at Discharge Caplet 02/24/20 Metoclopramide [Reglan] 5 mg PO Q6H #60 tab 02/26/20 Ondansetron [Zofran Odt] 4 mg PO Q6H #60 tab 02/26/20 The following prescriptions were given: Metoclopramide [Reglan] 5 mg PO Q6H #60 tab Transmission Status: Sent to [facility] Ondansetron [Zofran Odt] 4 mg PO Q6H #60 tab Transmission Status: Sent to [facility] Primary Care Physician: NOT,DEFINED [NON-STAFF] - Test Results: Test results from this visit will be discussed in further detail at your follow- up appointment, if applicable. Please Follow Up With: Ling Ansari MD When: 2 weeks
[2020-02-26] MEDS: Famotidine 200 MG/20 ML MDV 20 MG in 0.9% Normal Saline (Pres. free 8 ML 300 MG IV (10:16)
[2020-02-26] MEDS: 0.9% Saline Lock 10 ML Syringe IV (10:16)
[2020-02-26 14:31] VITALS: BP 135/84; PULSE 78; RESP 18; TEMP 36.6; O2SAT 98
--- NOTE | 2020-02-26 15:28 | PHA.DC.MC ---
Pharmacy Service has performed discharge medication reconciliation and counseling for this patient. 1. ONDANSETRON 4MG PO Q6H 2. METOCLOPRAMIDE 5MG PO Q6H The patient's discharge medication list was reviewed for discrepancies and discrepancies were resolved. Home Medications Caplet 02/24/20 Metoclopramide [Reglan] 5 mg PO Q6H #60 tab 02/26/20 Ondansetron [Zofran Odt] 4 mg PO Q6H #60 tab 02/26/20 The patient was counseled on the following discharge medications and changes in medications for homegoing were reviewed. The Reason for Use, instructions for use, and potential side effects were reviewed for all new medications. The patient's questions regarding all of their medications were answered. The patient was able to verbally demonstrate an understanding of their discharge medications.
== END 2020-02-26 14:52 | disposition home or self-care (01) ==
LOC: ED 13:18 → MS3 13:30
PROVIDERS: Admitting Provider Obstetrics & Gynecology; Emergency Provider Emergency Medicine; Visit Provider Obstetrics & Gynecology
DX: O21.1 Hyperemesis gravidarum with metabolic disturbance (principal); O99.281 Endocrine, nutritional and metabolic diseases complicating pregnancy, first trimester; E86.0 Dehydration; Z3A.08 8 weeks gestation of pregnancy; R00.0 Tachycardia, unspecified
CPT/HCPCS: 36415; 76801; 80048; 80076; 81001; 84156; 85025; 96361; 96374; 96375; 96376; 97802; 99218; 99251; 99284; J7030; J7040; J7050; A4216; G0378; G0463; J2405; J3490; J7799

== ENCOUNTER 2020-03-09 10:20 | Emergency (ER) | payer OTHER, SELFPAY ==
[2020-02-24 14:13] VITALS: BMI 33.6
[2020-03-09 10:21] VITALS: BP 117/82; PULSE 118; RESP 16; TEMP 36.8; O2SAT 97; BMI 33.6
[2020-03-09] MEDS: Ondansetron 4 MG/2 ML Vial IV (10:44)
[2020-03-09] MEDS: 0.9% Normal Saline 1,000 ML 1000 ML IV (10:45)
--- NOTE | 2020-03-09 10:51 | ED.VIS.GEN ---
History of Present Illness Chief Complaint: Nausea/Vomiting Informant: Patient, Significant Other Onset: Weeks Context: Sudden Onset Timing: Continuous - Sensation of nausea is continuous, Intermittent - Abdomen is intermittent Quality: Nausea and vomiting Location: GI Current Severity: Moderate Maximum Severity: Severe Worsened by: Relieved by: Nothing Associated Symptoms: Dry mouth, thirst, orthostatic symptoms Narrative: Patient is a 29-year-old female with hyperemesis gravidarum who presents to the emergency department because of persistent nausea and vomiting. She reports thirst, dry mouth and lightheadedness. She is on a regimen of Zofran and Reglan. She has vomited 4 times since midnight and vomited 4 times yesterday. She states she has lost weight during the . She denies fever, chills night sweats. She denies URI symptoms. She denies dysuria, frequency, urgency or hematuria. She reports decreased urine output and darker urine. She was admitted earlier in the month for hyperemesis. Prior similar symptoms: Yes Recent Illness/Hospitalization: Yes - Past Medical History (1) Hyperemesis gravidarum with dehydration Status: Acute Past Medical History - Allergies and Home Meds Allergies/Adverse Reactions: Allergies iodine Allergy (Verified 03/09/20 10:23) Hives Penicillins Allergy (Verified 03/09/20 10:23) Hives shellfish derived Allergy (Verified 03/09/20 10:23) Hives Primary Care Physician: Ana Brizuela [Other] Prior records reviewed: Yes Surgical History: no surgical history, - - Vaginal delivery with vacuum assist for the first child Lives: Spouse/ Significant Other, With Family Smoking Status: Never smoker Alcohol: None Drugs: None Review of Systems General: Reports: Weight loss. Denies: Chills, Fever, Malaise, Sweats ENT: Denies: Bilateral ear pain, Rhinorrhea, Sore throat Cardiovascular: Denies: Chest pain, Palpitations Respiratory: Denies: Dyspnea, Cough, Dyspnea on exertion Gastrointestinal: Reports: Nausea, Vomiting. Denies: Abdominal pain, Diarrhea, Constipation, Melena, Hematochezia, -, - Genitourinary: Denies: Dysuria, Hematuria, Frequency, -, - - Decreased urine output Musculoskeletal: Denies: Myalgias, Arthralgias, Neck pain, Back pain, Swelling, Extremity Pain Skin: Denies: Rash Neurological: Denies: Headache, Parasthesia, Numbness Endocrine: Denies: Polyuria, Polydipsia Hematologic: Denies: Easy bruising, Easy bleeding Allergy: Denies: Uticaria Physical Exam Vital Signs/Narrative: Vital Signs Temp Pulse Resp BP Pulse Ox 03/09/20 10:21 98.2 F 118 H 16 117/82 H 97 Inital Vital Signs reviewed: Yes General: Well nourished, Well developed, - - Patient does not appear well. Head: Normocephalic, Atraumatic Eyes: Perrl, EOMI. Negative for: Pale conjunctiva, Scleral icterus ENT: No rhinorrhea, TM's clear, Dry mucous membranes Neck: Supple, Nontender, No lymphadenopathy, No JVD Cardiovascular: Regular rhythm, No murmurs, Normal S1, Normal S2, Tachycardia Respiratory: No distress, CTA bilaterally, Chest nontender Abdomen: Soft, Nontender, Nondistended, No masses, Hypoactive bowel sounds Rectal: Deferred Back: Nontender, Normal Inspection Extremities: Nontender, No edema Skin: No rash, No Trauma. Negative for: Cyanosis, Diaphoresis, Jaundice, Rash Neurological: Alert, Oriented x3, Cranial nerves II-XII grossly intact, Normal Strength, Normal Sensation Psychological: - - Affect is blunted Diagnostic/Tx/Re-eval - Medical Decision Making Patient is tachycardic. She was see 1 L normal saline and IV antiemetic. Will obtain UA to assess for ketones and specific gravity. BMP to assess electrolytes and renal function. Patient would prefer to go home if she is able to feel better. Patient was reassessed after second liter of fluid, D5 half-normal saline. She is able to eat crackers and keep fluids down. She feels comfortable going home. She looks much improved. She does have an appointment with Dr. Iman Alcazar on March 11. ED Disposition - Plan for ED Patient: Disposition: Home or Assisted Living Diagnosis: Hyperemesis gravidarum before end of 22 week gestation with carbohydrate depletion Instructions: Hyperemesis Gravidarum (Severe Morning Sickness) Referrals: Aan Brizuela [Other] Ling Byrd MD [STAFF PHYSICIAN] - Keep Romie appointment
[2020-03-09 10:56] LABS: Anion Gap 7 (5-15); BUN 9 mg/dL (7-18); BUN/Creat Ratio 15.1 RATIO (10-20); Chloride 105 mmol/L (98-107); EST Glomerular Filtration Rate 127 mL/min (>60); Est Glom Filt Rate - Afr Amer 154 mL/min (>60); Estimated Creatinine Clearance 120.54 ml/min; Glucose 76 mg/dL (74-106); Sodium Level 136 mmol/L (136-145)
--- NOTE | 2020-03-09 12:12 | ED.RN ---
this rn has approached pt twice to obtain ua. pt states not able. pt remains aware that ua is all we are waiting on
[2020-03-09 12:28] LABS: Squamous Epithelial Cells - UA 0 SEEN /hpf (5-10); White Blood Cells 0 SEEN /hpf (0-5)
[2020-03-09 12:32] LABS: Color, Urine Yellow (Yellow); Glucose, Dipstick Normal (Normal); Leukocyte Esterase-Dipstick Negative /ul (Negative); Nitrite-Dipstick Negative (Negative); Occult Blood-Urine 10 /ul (Negative); Protein-Dipstick 15 mg/dl (Negative); Specific Gravity, Urine 1.025 (1.002-1.030); Urine Bilirubin Dipstick Negative (Negative); Urine Clarity Sl. Cloudy (Clear); Urine Urobilinogen 1 mg/dl (Normal)
[2020-03-09 12:43] LABS: Ketone-Dipstick 150 mg/dl (Negative)
[2020-03-09 12:45] LABS: Bacteria 1+ /hpf (None Seen); Mucous, Urine 1+ /hpf (<or=2+); Red Blood Cells-Urine 0-5 SEEN /hpf (0-5)
[2020-03-09] MEDS: Ceftriaxone 1 GM/50 ML BAG IV (13:49)
[2020-03-09] MEDS: Dext 5%-0.45% NS 1,000 ML 999 ML IV (13:49)
[2020-03-09] MEDS: Metoclopramide 10 MG/2 ML Vial 5 MG IV (13:57)
[2020-03-09 14:02] VITALS: BP 139/75; PULSE 88; RESP 16; O2SAT 97
[2020-03-09 15:37] VITALS: BP 112/80; PULSE 92; RESP 16; O2SAT 96
[2020-03-09 16:47] VITALS: PULSE 16
== END 2020-03-09 16:53 | disposition home or self-care (01) ==
PROVIDERS: Emergency Provider Emergency Medicine
DX: O21.1 Hyperemesis gravidarum with metabolic disturbance (principal); Z3A.22 22 weeks gestation of pregnancy
CPT/HCPCS: 80048; 81001; 87086; 87088; 96361; 96365; 96366; 96375; 99283; J7030; J2405

== ENCOUNTER 2020-03-18 18:05 | Emergency (ER) | payer OTHER, SELFPAY ==
[2020-03-18 18:06] VITALS: BP 133/78; PULSE 104; RESP 15; TEMP 36.7; O2SAT 98; BMI 32.4
--- NOTE | 2020-03-18 18:19 | ED.DCSUM_ITS ---
- ER Visit Summary Date of Service: 03/18/20 Chief Complaint: Nausea and vomiting History of Present Illness: The patient is a 29 F G4, P1 Ab2 that is currently 12 weeks with a due date of October 01, 2020. Patient is already an ultrasound showing a single live IUP and is under the care of Dr. Iman Alcazar. Basically she has had a lot of nausea and vomiting with this . She is on a Reglan subcu abdominal pump and p.o. Zofran as needed. She has been having nausea vomiting lately. Yesterday she was seen in an urgent care in [place] was diagnosed with a UTI and started on Keflex. She is taken 2 dosages so far the Keflex. Patient was sent in today because of possible dehydration. She denies abdominal pain. She denies fever. She denies diarrhea or vaginal bleeding. Patient was admitted 2 to 3 weeks ago for several days in the hospital for nausea and vomiting and dehydration. Physical Examination: 29-year-old female accompanied by her significant other. Vital signs are stable. Afebrile. Pulse ox 98%. She does not look septic or toxic. She does look mildly dehydrated. HEENT exam mildly dry mucous membranes. Neck nontender no lymphadenopathy. Lungs clear to auscultation bilaterally. Heart regular rhythm rate about 100 no murmur. Abdomen soft nontender normal bowel sounds no peritoneal signs. No right lower quadrant, right upper quadrant nor suprapubic tenderness. No signs of obstruction. Patient is moving all 4 extremities. Calves are nontender without edema. Upper and lower extremities had normal motor strength. Back nontender. No CVA tenderness. Neurologically she is awake and alert. Test Results: Chemistry panel shows no acute abnormality. Normal gap. Normal creatinine. Potassium 3.3. Urinalysis shows Emergency Department Course and Treatment: female at 12 weeks with nausea and vomiting. Recently diagnosed with UTI. Will check a chemistry panel and urinalysis. She will be treated with a liter normal saline and IV Zofran and reassess. P.o. fluid challenge. Repeat exams patient is doing better currently at 1946 PM. Nausea is improving. Able to hold down p.o. fluids. Treatment Plan: Plenty of fluids and rest. Increase diet slowly as tolerated. Continue her Reglan pump as needed and her Zofran as needed. Return if feeling worse. Follow-up with her PRODUCTION INSPECTOR. Disposition: Discharge Impression: Nausea and vomiting Hyperemesis gravidarum at about 12 weeks Mild dehydration This note was generated with [employer] dictation software. It may contain incorrect words, spelling, and punctuation that were not noted in review of the chart prior to signing ED Disposition - Plan for ED Patient: Referrals: [facility] Doctor,Out of [NON-STAFF] -
[2020-03-18] MEDS: 0.9% Normal Saline 1,000 ML 1000 ML IV (18:27)
[2020-03-18] MEDS: Ondansetron 4 MG/2 ML Vial IV (18:31)
[2020-03-18 19:36] LABS: Anion Gap 7 (5-15); BUN 7 mg/dL (7-18); BUN/Creat Ratio 13.5 RATIO (10-20); Calcium,Total 8.7 mg/dL (8.5-10.1); Chloride 108 mmol/L (98-107); Creatinine, Serum 0.52 mg/dL (0.55-1.02); EST Glomerular Filtration Rate 150 mL/min (>60); Est Glom Filt Rate - Afr Amer 182 mL/min (>60); Estimated Creatinine Clearance 139.09 ml/min; Glucose 80 mg/dL (74-106); Potassium 3.3 mmol/L (3.5-5.1); Sodium Level 139 mmol/L (136-145)
--- NOTE | 2020-03-18 19:46 | DCINST.ED_ITS ---
ED Disposition - Plan for ED Patient: Disposition: Home or Assisted Living Instructions: ED Nausea Vomiting Adult Referrals: Ling Byrd MD [STAFF PHYSICIAN] - As Needed Additional Instructions: Plenty of fluids and rest. Use your home nausea medications both your Reglan pump and the Zofran as needed. Increase your diet slowly as tolerated. Follow-up with your [employer]. Return emergency department if you are feeling worse or unable to keep fluids down.
[2020-03-18 19:51] LABS: Bacteria 0 SEEN /hpf (None Seen); Red Blood Cells-Urine 0 SEEN /hpf (0-5); White Blood Cells 0 SEEN /hpf (0-5)
[2020-03-18 19:52] LABS: Color, Urine Yellow (Yellow); Glucose, Dipstick Normal (Normal); Leukocyte Esterase-Dipstick 25 /ul (Negative); Nitrite-Dipstick Negative (Negative); Occult Blood-Urine 10 /ul (Negative); Protein-Dipstick 15 mg/dl (Negative); Urine Bilirubin Dipstick Negative (Negative); Urine Clarity Clear (Clear); Urine Urobilinogen 1 mg/dl (Normal)
[2020-03-18 19:58] LABS: Ketone-Dipstick 150 mg/dl (Negative)
[2020-03-18 20:03] LABS: Calcium Oxalate Crystals Ur 2+ /hpf (<or=2+); Mucous, Urine 3+ /hpf (<or=2+); Squamous Epithelial Cells - UA 0-5 SEEN /hpf (5-10)
[2020-03-18 20:07] VITALS: RESP 14
[2020-03-18 20:14] VITALS: PULSE 86; RESP 16; O2SAT 99
== END 2020-03-18 20:14 | disposition home or self-care (01) ==
PROVIDERS: Emergency Provider Emergency Medicine
DX: O21.1 Hyperemesis gravidarum with metabolic disturbance (principal); O23.41 Unspecified infection of urinary tract in pregnancy, first trimester; Z3A.12 12 weeks gestation of pregnancy
CPT/HCPCS: 80048; 81001; 96361; 96374; 99283; J7030; J2405

== ENCOUNTER 2020-06-23 13:10 | Outpatient (CLI) | payer OTHER, SELFPAY ==
[2020-06-23 13:47] VITALS: BMI 36.0
--- NOTE | 2020-06-23 14:53 | PCM.PN.BLA ---
Progress Note Triage Visit CC: s/p fall HPI: at 25/5w s/p fall. Patient rolled left ankle and fell onto side. No direct abdominal trauma. +FM. Denies cramping, LOF, +VM. Denies GUADARRAMA, vision changes, chest pain, dyspnea, nausea, emesis. complicated by: history of HSV OB Hx: G1: early SAB G2: early SAB G3: 38w , gHTN G4: current Medical Hx: HSV Medications: ASA, PNV, zofran Allergies: iodine, PCN, shellfish Surgical Hx: denies Family Hx: noncontributory ROS: negative other than above Physical Exam GEN: nad CARDIORESP: no icnreased effort ABDOMEN; soft, NT, gravid. no ecchymosis EXT; mild left ankle edema, ice on FHR: 145/mod ansley/+accel/no decel [place]: quiet A/p: at 25/5w s/p fall. A positive. Monitor x4 hours. If continued reassuring status and no contraction frequency >6 in 1 hour discharge home. Discussed with RN and patient at bedside.
== END 2020-06-23 17:30 | disposition home or self-care (01) ==
LOC: WPOUT 13:22 → WP 13:37
PROVIDERS: Referring Provider Student in an Organized Health Care Education/Training Program; Visit Provider Student in an Organized Health Care Education/Training Program
DX: Z04.3 Encounter for examination and observation following other accident (principal)
CPT/HCPCS: 59050; 99218; G0378

== ENCOUNTER → 2020-07-18 09:21 | Outpatient (CLI) | payer OTHER, SELFPAY ==
[2020-06-23 13:47] VITALS: BMI 36.0
[2020-07-18 11:31] LABS: Hematocrit 37.8 % (37-47); Hemoglobin 12.2 g/dL (12.0-15.0); Mean Corp Hgb Conc 32.3 g/dL (32-36); Mean Corpuscular Hgb 31.2 pg (27.0-32.0); Mean Corpuscular Volume 96.7 fL (81-99); Mean Platelet Vol. 11.4 fl (6.2-12.0); Platelet Count 217 K/mm3 (150-450); RBC Distribution Width CV 14.2 % (11.6-14.6); Red Blood Count 3.91 M/mm3 (4.2-5.4); White Blood Count 8.7 K/mm3 (4.4-11.0)
[2020-07-18 11:35] LABS: Glucose Challenge Gest 1H 50g 109 mg/dL (70-140)
== END ==
PROVIDERS: Visit Provider Obstetrics & Gynecology
DX: Z34.83 Encounter for supervision of other normal pregnancy, third trimester (principal)
CPT/HCPCS: 36415; 82950; 85027

== ENCOUNTER → 2020-08-27 15:02 | Outpatient (CLI) | payer OTHER, SELFPAY ==
[2020-08-27 17:24] LABS: Hematocrit 39.1 % (37-47); Hemoglobin 12.7 g/dL (12.0-15.0); Mean Corp Hgb Conc 32.5 g/dL (32-36); Mean Corpuscular Hgb 30.2 pg (27.0-32.0); Mean Corpuscular Volume 93.1 fL (81-99); Mean Platelet Vol. 12.2 fl (6.2-12.0); Platelet Count 177 K/mm3 (150-450); RBC Distribution Width CV 14.4 % (11.6-14.6); RBC Distribution Width SD 48.8 fl (35.1-43.9); White Blood Count 9.5 K/mm3 (4.4-11.0)
[2020-08-27 17:38] LABS: ALB/GLOB Ratio 0.7 RATIO (0.9-2.4); AST(SGOT) 17 U/L (15-37); Alanine Aminotransfer ALT/SGPT 26 U/L (13-56); Albumin, Serum 2.7 g/dL (3.2-5.0); Alkaline Phosphatase 130 U/L (45-117); Anion Gap 7 (5-15); BUN 7 mg/dL (7-18); BUN/Creat Ratio 13.2 RATIO (10-20); Calcium,Total 8.6 mg/dL (8.5-10.1); Chloride 108 mmol/L (98-107); Creatinine, Serum 0.53 mg/dL (0.55-1.02); EST Glomerular Filtration Rate 145 mL/min (>60); Est Glom Filt Rate - Afr Amer 176 mL/min (>60); Globulin 3.9 g/dL (2.2-4.2); Glucose 77 mg/dL (74-106); Potassium 3.4 mmol/L (3.5-5.1); Protein, Total 6.6 g/dL (6.4-8.2); Sodium Level 139 mmol/L (136-145); Uric Acid 3.9 mg/dL (2.6-6.0)
[2020-08-27 17:40] LABS: Protein, Urine (Random) 12.1 mg/dL (<11.9); Protein:Creat Ratio 330 mg/g CRE (0-200)
== END ==
PROVIDERS: Visit Provider Obstetrics & Gynecology
DX: O13.5 Gestational [pregnancy-induced] hypertension without significant proteinuria, complicating the puerperium (principal); Z3A.00 Weeks of gestation of pregnancy not specified
CPT/HCPCS: 36415; 80053; 82570; 84156; 84550; 85027

== ENCOUNTER → 2020-09-03 15:28 | Outpatient (CLI) | payer OTHER, SELFPAY ==
[2020-09-03 16:25] LABS: Hemoglobin 12.7 g/dL (12.0-15.0); Mean Corp Hgb Conc 32.6 g/dL (32-36); Mean Corpuscular Hgb 30.5 pg (27.0-32.0); Mean Corpuscular Volume 93.5 fL (81-99); Mean Platelet Vol. 11.6 fl (6.2-12.0); Platelet Count 167 K/mm3 (150-450); RBC Distribution Width CV 14.3 % (11.6-14.6); RBC Distribution Width SD 49.1 fl (35.1-43.9); Red Blood Count 4.17 M/mm3 (4.2-5.4); White Blood Count 9.2 K/mm3 (4.4-11.0)
[2020-09-03 16:42] LABS: ALB/GLOB Ratio 0.6 RATIO (0.9-2.4); AST(SGOT) 16 U/L (15-37); Alanine Aminotransfer ALT/SGPT 19 U/L (13-56); Albumin, Serum 2.8 g/dL (3.2-5.0); Alkaline Phosphatase 142 U/L (45-117); Anion Gap 7 (5-15); BUN 8 mg/dL (7-18); BUN/Creat Ratio 12.4 RATIO (10-20); Calcium,Total 8.6 mg/dL (8.5-10.1); Chloride 109 mmol/L (98-107); Creatinine, Serum 0.65 mg/dL (0.55-1.02); EST Glomerular Filtration Rate 115 mL/min (>60); Est Glom Filt Rate - Afr Amer 140 mL/min (>60); Globulin 4.4 g/dL (2.2-4.2); Glucose 90 mg/dL (74-106); Potassium 3.7 mmol/L (3.5-5.1); Protein, Total 7.2 g/dL (6.4-8.2); Sodium Level 138 mmol/L (136-145); Uric Acid 4.1 mg/dL (2.6-6.0)
== END ==
PROVIDERS: Visit Provider Obstetrics & Gynecology
DX: Z36.85 Encounter for antenatal screening for Streptococcus B (principal)
CPT/HCPCS: 36415; 80053; 84550; 85027; 87081

== ENCOUNTER 2020-09-06 07:50 | Outpatient (CLI) | payer OTHER, SELFPAY ==
[2020-09-06 08:01] VITALS: BP 123/79; PULSE 130
[2020-09-06 08:02] VITALS: PULSE 125; O2SAT 99
[2020-09-06 08:24] VITALS: BMI 39.3
[2020-09-06 08:29] VITALS: TEMP 36.4
[2020-09-06 08:58] VITALS: BP 135/81; PULSE 123
[2020-09-06 08:59] VITALS: PULSE 115; O2SAT 98
--- NOTE | 2020-09-11 07:08 | OB.TRI.NOTE ---
- Problem List (1) 36 weeks gestation of Status: Acute History of Present Illness Date of Service: 09/06/20 Was patient seen by the physician?: No Reason For Visit: NST Final TIM: 10/01/20 Final TIM Source: US <20 weeks Gestational age: 36 weeks 3 days History of Present Illness: 29yo @ 36 3/7wga with preeclampsia without severe features presenting for scheduled NST Allergies iodine Allergy (Verified 06/23/20 13:50) Nausea Penicillins Allergy (Verified 03/18/20 18:10) Hives shellfish derived Allergy (Verified 06/23/20 13:50) Nausea - Pertinent Past Medical History Medical History: Past Medical History (Last Updated 02/24/20 @ 13:[address] Ling Alcazar MD) Vacuum-assisted vaginal delivery 06/17/17 male, [place] Physical Exam Vitals: Vital Signs Temp Pulse BP Pulse Ox 97.5 F L 115 H 135/81 H 98 09/06/20 08:29 09/06/20 08:59 09/06/20 08:58 09/06/20 08:59 NST - FHR Rate Baby A Baseline: 145 Variability:: Moderate Accelerations:: 15 x 15 Decelerations:: None NST Reactive:: Yes FHR Category:: Category I Uterine Activity:: 0/10 Impression/Plan Reactive NST, Cat I FHR Preeclampsia without severe features d/c home
== END 2020-09-06 09:00 | disposition home or self-care (01) ==
LOC: WPOUT 07:59 → WP 07:59
PROVIDERS: Referring Provider Obstetrics & Gynecology; Visit Provider Obstetrics & Gynecology
DX: O14.03 Mild to moderate pre-eclampsia, third trimester (principal); Z3A.36 36 weeks gestation of pregnancy
CPT/HCPCS: 59050; 99218; G0378

== ENCOUNTER → 2020-09-10 11:29 | Outpatient (CLI) | payer OTHER, SELFPAY ==
[2020-09-06 08:24] VITALS: BMI 39.3
[2020-09-10 13:57] LABS: Hematocrit 36.9 % (37-47); Hemoglobin 12.5 g/dL (12.0-15.0); Mean Corp Hgb Conc 33.9 g/dL (32-36); Mean Corpuscular Hgb 31.6 pg (27.0-32.0); Mean Corpuscular Volume 93.2 fL (81-99); Mean Platelet Vol. 11.9 fl (6.2-12.0); Platelet Count 184 K/mm3 (150-450); RBC Distribution Width CV 14.6 % (11.6-14.6); RBC Distribution Width SD 50.1 fl (35.1-43.9); Red Blood Count 3.96 M/mm3 (4.2-5.4); White Blood Count 8.7 K/mm3 (4.4-11.0)
[2020-09-10 14:35] LABS: ALB/GLOB Ratio 0.6 RATIO (0.9-2.4); AST(SGOT) 14 U/L (15-37); Alanine Aminotransfer ALT/SGPT 17 U/L (13-56); Albumin, Serum 2.6 g/dL (3.2-5.0); Alkaline Phosphatase 139 U/L (45-117); Anion Gap 10 (5-15); BUN 7 mg/dL (7-18); Calcium,Total 8.3 mg/dL (8.5-10.1); Chloride 107 mmol/L (98-107); Creatinine, Serum 0.54 mg/dL (0.55-1.02); EST Glomerular Filtration Rate 143 mL/min (>60); Est Glom Filt Rate - Afr Amer 172 mL/min (>60); Globulin 4.1 g/dL (2.2-4.2); Glucose 79 mg/dL (74-106); Potassium 3.7 mmol/L (3.5-5.1); Protein, Total 6.7 g/dL (6.4-8.2); Sodium Level 137 mmol/L (136-145); Uric Acid 4.1 mg/dL (2.6-6.0)
== END ==
PROVIDERS: Visit Provider Obstetrics & Gynecology
DX: O14.03 Mild to moderate pre-eclampsia, third trimester (principal); K71.0 Toxic liver disease with cholestasis; L29.8 Other pruritus; Z3A.00 Weeks of gestation of pregnancy not specified
CPT/HCPCS: 36415; 80053; 84550; 85027

== ENCOUNTER 2020-09-12 06:50 | Inpatient (IN) | payer OTHER, SELFPAY ==
[2020-09-12] VITALS (38 sets, daily range): BP systolic 110–147; BP diastolic 63–89; PULSE 93–127; RESP 16–20; TEMP 36.5–36.9; O2SAT 93–100; BMI 39.6
[2020-09-12] MEDS: Lactated Ringers 1,000 ML 50 ML IV (07:55)
[2020-09-12] MEDS: Oxytocin 30 units/NS 500 ml 30 UNITS/500 ML IV.SOLN IV (08:03)
[2020-09-12 08:24] LABS: Absolute Lymphocyte Count 1.38 X10^3/uL (0.83-4.51); Basophil# 0.04 X10^3/uL; Basophil% 0.5 % (0-1); Eosinophil# 0.09 X10^3/uL; Eosinophils% 1.1 % (0-5); Hematocrit 34.7 % (37-47); Hemoglobin 11.9 g/dL (12.0-15.0); Lymphocyte # 1.38 X10^3/ul (4.0); Lymphocyte % 16.6 % (19-41); Mean Corp Hgb Conc 34.3 g/dL (32-36); Mean Corpuscular Hgb 31.6 pg (27.0-32.0); Mean Platelet Vol. 11.3 fl (6.2-12.0); Monocyte# 0.69 X10^3/uL; Monocyte% 8.3 % (0-10); NRBC Flagged by Analyzer 0 % (0-5); Neutrophil # 6.04 X10^3/uL (2.7-7.7); Neutrophil % 72.4 % (47-70); Platelet Count 166 K/mm3 (150-450); RBC Distribution Width CV 14.3 % (11.6-14.6); RBC Distribution Width SD 47.9 fl (35.1-43.9); Red Blood Count 3.77 M/mm3 (4.2-5.4); White Blood Count 8.3 K/mm3 (4.4-11.0)
--- NOTE | 2020-09-12 08:55 | HP.PCM_ITS ---
- Problem List (1) 37 weeks gestation of Status: Acute (2) Preeclampsia Status: Acute Qualifiers: Trimester: third trimester Qualified Code(s): O14.93 - Unspecified pre- eclampsia, third trimester History Date of Admission: 09/12/20 Final TIM: 10/01/20 Final TIM Source: US <20 weeks Gestational age: 39 Weeks and 3 Days History of this : This is a 29 year-old, G [4], P []1021, at 37 2/7 weeks gestational age admitted with preeclampsia without severe features. Recent hx COVID19 approximately 4 weeks ago with residual cough. Denies fever, chills, headache, vision changes, chest pain. Reports mild shortness of breath with cough episodes and posttussive emesis. + FM. No contractions, LOF or vaginal bleeding. Good movement. Issues Declines AFP and CF. ALLERGIC PENICILLIN, SHELLFISH. HSV - Valtrext at 36wga hx gHTN, mild preeclampsia this Hyperemesis gravidarum RESOLVED Medical History: Medical History (Last Updated 02/24/20 @ 13:[address] Ling Alcazar MD) Vacuum-assisted vaginal delivery Z37.9 06/17/17 male, [place] Allergies iodine Allergy (Verified 06/23/20 13:50) Nausea Penicillins Allergy (Verified 03/18/20 18:10) Hives shellfish derived Allergy (Verified 06/23/20 13:50) Nausea Home Medications: Home Medications Rkiyftbo62/Iron Fum/FA/Om3/Dha [ Plus-Dha Combo Pack] 1 ea PO 06/23/20 Guaifenesin/Pseudoephedrne HCl [Mucinex D ER 1,200-120 mg Tab] 1 ea PO 09/06/20 Ubidecarenone [Co Q-10] 10 mg PO 09/06/20 Valacyclovir HCl [Valtrex] 500 mg PO BID 09/06/20 Vit B Comp C 19/Folic Acid/D3 [Nephronex-Sl Tablet] 1 ea PO 09/06/20 Vit C/E/Zinc/Lutein/Zeaxanthin [Ocuvite Eye Health Gummies] 1 ea PO 09/06/20 Vit D3/Vit K2/Calc Frutoborate [Move Free Mxnud-Ljqbtq-Y5-D3] 1 ea PO 09/06/20 Prednisone 5 mg PO DAILY #3 tab 09/12/20 Smoking Status: Former smoker Alcohol: None Number of Fetus(es): 1 NST - FHR Rate Baby A Baseline: 140 Variability:: Moderate Accelerations:: 15 x 15 Decelerations:: None NST Reactive:: Yes FHR Category:: Category I Uterine Activity:: 0/10 History Past Pregnancies: Past Pregnancies Delivery Date Name GA/ Weeks Outcome Route Wt Sex Anesthesia Delivery Location Provider FOB 06/17/21 Josue 39.1 IOL, gHTN VAVD 3959g M Epidural WC Josiah Narayan Labs: Mom's Labs & Results 09/12/20 09/12/20 07:55 07:55 WBC 8.3 RBC 3.77 L Hgb 11.9 L Hct 34.7 L MCV 92.0 MCH 31.6 MCHC 34.3 RDW Std Deviation 47.9 H RDW Coeff of Ish 14.3 Plt Count 166 MPV 11.3 Immature Gran % (Auto) 1.100 H Neut % (Auto) 72.4 H Lymph % (Auto) 16.6 L Russell % (Auto) 8.3 Eos % (Auto) 1.1 Baso % (Auto) 0.5 Absolute Neuts (auto) 6.0 Absolute Lymphs (auto) 1.38 Nucleated RBC % 0 Blood Type A POSITIVE Antibody Screen NEGATIVE Course Did the patient receive Yes care? Labs Blood Type: A RH: POSITIVE RPR/VDRL/Syphilis Nonreactive Rubella status Immune HbSAg Negative Chlamydia Negative Gonorrhea Negative HIV/AIDS Reactive Group B Strep: Negative Current Obstetrical History Gestational Diabetes No Incompetent Cervix No Infertility No IUGR No Macrosomia No Hypertension/Pre-eclampsia Yes Placenta Previa/Abruption No PTL/PROM No Uterine anomaly No Oligohydramnios No Polyhydramnios No Multiple gestation No Past Medical History Asthma No Diabetes No Hypertension No Heart disease No Mitral valve prolapse No Neurologic/Seizure disorder/ Yes: hx of migraines Migraines Kidney disease No Liver disease No Varicosities No Clotting disorders/Hx of DVT No Thyroid Dysfunction No Other medical diseases No Psychiatric disorders No Major trauma No Abnormal PAP smear No Sleep apnea No Mammogram in the last 2 years No Social History Marital Status: Alleged father Sylvain Lee Hx Smoking Yes Smoking Status Former smoker Expected Delivery Method: Spontaneous Vaginal Number of Visits: 12 Physical Exam Vitals: Vital Signs Temp Pulse Resp BP Pulse Ox 98.4 F 114 H 16 123/75 H 99 09/12/20 11:40 09/12/20 15:46 09/12/20 12:15 09/12/20 15:37 09/12/20 15:46 General: Alert, Oriented x3, Cooperative, No apparent distress HEENT: Atraumatic, Normocephalic Cardiovascular: Regular rate, Regular Rhythm, Normal S1, Normal S2 Lungs: Clear to auscultation, Normal air movement Abdomen: Soft, Non Tender, Non-Distended, Gravid Extremities:: No edema Neurological: Neuro grossly intact DIRECTOR BIOLOGY: Normal external genitalia Estimated gestational size: Appropriate for gestational size Presentation: Cephalic Cervix Dilation (cm): 2.5 Station: -3 Effacement (%): 50 Assessment/Plan All Active Problems (Last Updated 02/24/20 @ 13:[address] Ling Alcazar MD) Hyperemesis gravidarum with dehydration (Acute) Sinus tachycardia seen on satellite project site monitor (Acute) 8 weeks gestation of (Acute) 36 weeks gestation of (Acute) 37 weeks gestation of (Acute) Preeclampsia (Acute) This is a 29 year-old, G [4], P [1021], at 37 2/7 weeks gestational age. -No vulvovaginal lesions, will continue Valtrex -Pitocin -Plan early amniotomy -No evidence of worsening preeclampsia -Plan Prednisone burst x 3-5 days given persistent respiratory sx. r/b and potential effects on discussed. -Maternal and statuses reassuring
[2020-09-12] MEDS: predniSONE 20 MG Tablet PO ×2 (10:24→22:42)
--- NOTE | 2020-09-12 11:24 | PCM.PN.BLA ---
Progress Note LABOR PROGRESS NOTE Doing well overall. Reports continued cough. AVSS GEN - NAD, AAO x 3 FHR 140, moderate variability, + accelerations, no decelerations TOCO 2-5/10 min SVE 3.5/50/-3, soft and midposition A/P: 29yo @ 37 2/7wga with preeclampsia without severe features, Cat I FHR -Amniotomy performed with clear flulid -Continue pitocin as tolerated by mother and fetus -No si/sx worsening preeclampsia STROKE Vital Signs/Narrative: Vital Signs Pulse BP 09/12/20 10:29 100 139/86 H 09/12/20 08:44 106 H 116/70
[2020-09-12] MEDS: Lactated Ringers 500 ML 999 ML IV (11:30)
[2020-09-12] MEDS: Acetaminophen 500 MG Tablet PO (11:37)
[2020-09-12] MEDS: Albuterol 2.5 MG/3 ML VIAL.NEB. INHALATION ×2 (12:18→16:29)
[2020-09-12] MEDS: fentaNYL-bupivacaine (epidural) 100 ML BAG EPIDURAL (13:38)
--- NOTE | 2020-09-12 16:18 | HP.PCM_ITS ---
- Problem List (1) 37 weeks gestation of Status: Acute (2) Preeclampsia Status: Acute Qualifiers: Trimester: third trimester Qualified Code(s): O14.93 - Unspecified pre- eclampsia, third trimester
[2020-09-12] MEDS: Mag Hydrox/Al Hydrox/Simeth 30 ML UDC PO (16:19)
[2020-09-12] MEDS: Ondansetron 4 MG/2 ML Vial IV (16:19)
[2020-09-12] MEDS: Oxytocin 30 units/NS 500 ml 30 UNITS/500 ML IV.SOLN 334 UNITS IV (17:04)
[2020-09-12] MEDS: miSOPROStol 200 MCG Tablet 1000 MCG RECTAL (17:17)
--- NOTE | 2020-09-12 17:39 | PCM.OPRPT ---
Vaginal Delivery Maternal Presentation: Medically Indicated Induction Method of Induction: Pitocin, Amniotomy Final TIM: 10/01/20 Final TIM Source: US <20 weeks Gestational age: 37 Weeks and 2 Days Date of Procedure: 09/12/20 Pre-Operative Diagnosis: Red intrauterine , mild pre-eclampsia Post-Operative Diagnosis: Red intrauterine , mild pre-eclampsia Surgery/ Procedure Performed: Spontaneous Vaginal Delivery Type of Anesthesia: Epidural Description of Procedure: Spontaneous vaginal delivery. Baby to mom. Cord clamped and cut. Spontaneous delivery of placenta. Second degree perineal laceration repaired in usual fashion, hemostatic. 1000 mcg cytotec placed per rectum prophylactically. Estimated Blood Loss: 500cc A gender: Female (1 minute): 9 (5 minute): 9
--- NOTE | 2020-09-12 17:42 | DCINST_ITS ---
<Sandra Owens - Last Filed: 09/13/20 11:18> Discharge Diet: No Restrictions Discharge Activity: Return to Normal Activity May resume sexual activity in: 4-6 weeks, 6-8 weeks Weight Bearing Status: Weight bearing as tolerated Call your doctor if you observe: Fever of 101 or Higher, Coldness, Increased Pain, Inability to have a bowel movement, Using more than one pad per hour, Shortness of breath Additional Instructions: If you experience any of the following, contact your healthcare provider. * Bleeding that soaks a pad every hour for 2 hours * Fever 100.4 or higher * Unrelieved incision or abdominal pain * Swelling, redness, discharge or bleeding from your incision or episiotomy site * Your incision begins to separate * Problems urinating (including inability to urinate or burning while urinating). * Visual changes * Severe headache * Flu-like symptoms * Pain or redness in one of both of your breasts * Pain, warmth, tenderness or swelling in your legs, especially the calf area * Frequent nausea and vomiting * Symptoms of depression or anxiety If you experience any of the following, call 911 or go to the nearest Emergency Room. * Chest pain * Problems breathing * Seizure activity * Partial or complete paralysis of a body part, slurred speech, weakness or drooping of the face, or a sudden inability to walk or hold your balance Allergies/Adverse Reactions: Allergies iodine Allergy (Verified 06/23/20 13:50) Nausea Penicillins Allergy (Verified 03/18/20 18:10) Hives shellfish derived Allergy (Verified 06/23/20 13:50) Nausea Medications to take at Discharge Qyrpfrdn98/Iron Fum/FA/Om3/Dha [ Plus-Dha Combo Pack] 1 ea PO 06/23/20 Guaifenesin/Pseudoephedrne HCl [Mucinex D ER 1,200-120 mg Tab] 1 ea PO 09/06/20 Ubidecarenone [Co Q-10] 10 mg PO 09/06/20 Valacyclovir HCl [Valtrex] 500 mg PO BID 09/06/20 Vit B Comp C 19/Folic Acid/D3 [Nephronex-Sl Tablet] 1 ea PO 09/06/20 Vit C/E/Zinc/Lutein/Zeaxanthin [Ocuvite Eye Health Gummies] 1 ea PO 09/06/20 Vit D3/Vit K2/Calc Frutoborate [Move Free Paxbe-Wpcvip-D2-D3] 1 ea PO 09/06/20 Prednisone 5 mg PO DAILY #3 tab 09/12/20 The following prescriptions were given: Prednisone 5 mg PO DAILY #3 tab Prescription Printed Please Follow Up With: Ling Byrd MD When: 1 week BP check, 6 weeks Primary Care Physician: ZAMZAM YAN [Other] Test Results: Test results from this visit will be discussed in further detail at your follow- up appointment, if applicable. <Charbel Owens - Last Filed: 09/14/20 11:06> Additional Instructions: If you experience any of the following, contact your healthcare provider. * Bleeding that soaks a pad every hour for 2 hours * Fever 100.4 or higher * Unrelieved incision or abdominal pain * Swelling, redness, discharge or bleeding from your incision or episiotomy site * Your incision begins to separate * Problems urinating (including inability to urinate or burning while urinating). * Visual changes * Severe headache * Flu-like symptoms * Pain or redness in one of both of your breasts * Pain, warmth, tenderness or swelling in your legs, especially the calf area * Frequent nausea and vomiting * Symptoms of depression or anxiety If you experience any of the following, call 911 or go to the nearest Emergency Room. * Chest pain * Problems breathing * Seizure activity * Partial or complete paralysis of a body part, slurred speech, weakness or drooping of the face, or a sudden inability to walk or hold your balance Test Results: Test results from this visit will be discussed in further detail at your follow- up appointment, if applicable.
--- NOTE | 2020-09-12 18:28 | NURSING ---
Dr. Sandra Owens called and informed of order needing addressed for prednisone. Pt noted talking with Dr. Rahman today about taking a 5 day dose of prednisone for her cough from Covid. Informed that prednisone 20 mg BID ordered during labor and dose given at 1024 today. Also informed of pt's HR 110's-120's just prior to delivery and , BP's 120's/70's, bleeding WNL and fundus firm. Order received to give prednisone 20 mg tonight then 10 mg BID tomorrow.
[2020-09-12] MEDS: 0.9% Saline Lock 10 ML Syringe IV (19:31)
[2020-09-12] MEDS: Ibuprofen 600 MG Tablet PO (22:42)
--- NOTE | 2020-09-12 22:47 | NURSING ---
This RN assuming care of patient at this time. Report received from Cosme JOHN.
[2020-09-13] VITALS (12 sets, daily range): BP systolic 117–140; BP diastolic 72–96; PULSE 92–99; RESP 14–18; TEMP 36.1–36.6; O2SAT 98
--- NOTE | 2020-09-13 02:23 | NURSING ---
Taking over pt and care at this time.
[2020-09-13] MEDS: Acetaminophen 500 MG Tablet 1000 MG PO ×2 (04:11→17:29)
[2020-09-13] MEDS: Ibuprofen 600 MG Tablet PO (10:04)
[2020-09-13] MEDS: predniSONE 10 MG Tablet PO ×2 (10:08→17:30)
--- NOTE | 2020-09-13 11:19 | PCM.PN.OB ---
Patient Problems: Active and Suspected Problems (Last Updated 02/24/20 @ 13:[address] Ling Alcazar MD) 37 weeks gestation of (Acute) Preeclampsia (Acute) Subjective: Patient in shower. Per night went well, mom and baby did well overnight. No overnight events per nursing. - Physical Exam Vitals/I&O's: Vital Signs Temp Pulse Resp BP Pulse Ox 98 F 96 14 117/75 98 09/13/20 08:35 09/13/20 08:38 09/13/20 08:35 09/13/20 08:36 09/13/20 08:38 Oxygen Delivery Method Room Air Weight: 104.78 kg Body Mass Index (BMI) 39.6 Finger Stick Blood Glucose 97 Intake and Output for Last 24 Hours 09/11/20 09/12/20 09/13/20 23:59 23:59 23:59 Intake Total 2355.95 / 2355.95 Output Total 550 / 550 250 / 250 Balance 1805.95 / 1805.95 -250 / -250 Current Medications Acetaminophen (Acetaminophen 500 Mg Tablet) 1,000 mg PO Q8H PRN PRN PRN Reason: Pain Score 1-10 Last Admin: 09/13/20 04:11 Dose: 1,000 mg Documented by: Bisacodyl (Bisacodyl 10 Mg Suppository) 10 mg RECTAL UD PRN PRN Reason: If no BM Dibucaine (Dibucaine 30 Gm Tube) 1 applic TOPICAL TID PRN PRN; Protocol PRN Reason: Discomfort Hydrocortisone (Hydrocortisone 2.5% Crm) 1 applic TOPICAL TID PRN PRN; Protocol PRN Reason: Discomfort Ibuprofen (Ibuprofen 600 Mg Tablet) 600 mg PO Q6H PRN PRN PRN Reason: Pain Score 1-10 Last Admin: 09/13/20 10:04 Dose: 600 mg Documented by: Methylergonovine Maleate (Methylergonovine 0.2 Mg/Ml Ampul) 0.2 mg IM X1 PRN PRN Reason: Excess bleeding/uterine atony Ondansetron HCl (Ondansetron 4 Mg/2 Ml Vial) 4 mg IV Q4H PRN PRN PRN Reason: Nausea Prednisone (Prednisone 10 Mg Tablet) 10 mg PO BIDCM COUNTS INCLUDE 234 BEDS AT THE [facility] Last Admin: 09/13/20 10:08 Dose: 10 mg Documented by: Senna/Docusate Sodium (Senna/Docusate Sodium 1 Tablet) 1 - 2 tablet PO DAILY PRN PRN PRN Reason: Constipation Simethicone (Simethicone 80 Mg Tablet) 80 mg PO PCHS PRN PRN Reason: Indigestion/Stomach pain Sodium Chloride (0.9% Saline Lock 10 Ml Syringe) 5 - 15 ml IV UD PRN PRN Reason: SALINE FLUSH Last Admin: 09/12/20 19:31 Dose: 10 ml Documented by: Medical Necessity - Tobacco Use Smoking Status: Former smoker Assessment/Plan All Active Problems (Last Updated 02/24/20 @ 13:[address] Ling Alcazar MD) Hyperemesis gravidarum with dehydration (Acute) Sinus tachycardia seen on monitoring tech (Acute) 8 weeks gestation of (Acute) 36 weeks gestation of (Acute) 37 weeks gestation of (Acute) Preeclampsia (Acute) PPD #1 s/p , induction for mild pre-eclampsia. BPs wnl. COVID 3-4 weeks ago, persistent cough. Prednisone started yesterday, will taper. Continue inhaler PRN. Likely home tomorrow.
--- NOTE | 2020-09-13 17:35 | CASEMGMT ---
Social Work Brief Assessment Labor and Delivery Unit Refer documentation below for further details. 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 Introduced role and reason for referral. MOB laying in bed holding baby girl, Maya. MOB and FOB open to talking with this worker. 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 MOB states after giving to son (now 3 years old) battled PPD for the first 6 months. MOB states PPD was not diagnosed and did not seek counseling or medication treatment. Education provided on PPD and provided MOB and FOB with educational handouts. MOB reports felt good throughout this and denies any current issues with depression or anxiety. MOB has good support from FOB and family. MOB and FOB report to have all needs met for baby and deny any needs. Anticipate discharge tomorrow. Nursing updated on the above and voice no concerns. Plan: Home with resources provided No further needs requested or indicated.
[2020-09-13] MEDS: Albuterol 2.5 MG/3 ML VIAL.NEB. INHALATION (21:12)
[2020-09-14] MEDS: Ibuprofen 600 MG Tablet PO (00:14)
[2020-09-14 01:48] VITALS: BP 125/76; PULSE 108; RESP 16; TEMP 36.7
[2020-09-14] MEDS: Acetaminophen 500 MG Tablet 1000 MG PO (08:03)
[2020-09-14] MEDS: predniSONE 5 MG Tablet PO (08:04)
[2020-09-14 08:09] VITALS: BP 124/82; PULSE 90; RESP 16; TEMP 36.7
--- NOTE | 2020-09-14 11:10 | PCM.PN.OB ---
Patient Problems: Active and Suspected Problems (Last Updated 02/24/20 @ 13:[address] Ling Alcazar MD) 37 weeks gestation of (Acute) Preeclampsia (Acute) Subjective: No overnight complaints. Pain well controlled. Minimal lochia. Cough improving - Physical Exam Vitals/I&O's: Vital Signs Temp Pulse Resp BP Pulse Ox 98.1 F 90 16 124/82 H 98 09/14/20 08:09 09/14/20 08:09 09/14/20 08:09 09/14/20 08:09 09/13/20 08:38 Oxygen Delivery Method Room Air Weight: 231 lb Body Mass Index (BMI) 39.6 Finger Stick Blood Glucose 97 Intake and Output for Last 24 Hours 09/12/20 09/13/20 09/14/20 23:59 23:59 23:59 Intake Total 2355.95 / 2355.95 Output Total 550 / 550 250 / 250 Balance 1805.95 / 1805.95 -250 / -250 General: Alert, Oriented x3, Cooperative, No apparent distress HEENT: Atraumatic, Normocephalic Oral: Moist Mucosa Neck: Supple Abdomen: Soft, Non Tender, - - Uterus firm and below umbilicus Extremities: No clubbing, No cyanosis Neurological: Neuro grossly intact Psych/Mental Status: Normal Affect, Appropriate, Alert and oriented to time, place, person, mood and affect Current Medications Acetaminophen (Acetaminophen 500 Mg Tablet) 1,000 mg PO Q8H PRN PRN PRN Reason: Pain Score 1-10 Last Admin: 09/14/20 08:03 Dose: 1,000 mg Documented by: Albuterol Sulfate (Albuterol 2.5 Mg/3 Ml Vial.Neb.) 2.5 mg INHALATION Q4H PRN PRN PRN Reason: CONGESTION Bisacodyl (Bisacodyl 10 Mg Suppository) 10 mg RECTAL UD PRN PRN Reason: If no BM Dibucaine (Dibucaine 30 Gm Tube) 1 applic TOPICAL TID PRN PRN; Protocol PRN Reason: Discomfort Hydrocortisone (Hydrocortisone 2.5% Crm) 1 applic TOPICAL TID PRN PRN; Protocol PRN Reason: Discomfort Ibuprofen (Ibuprofen 600 Mg Tablet) 600 mg PO Q6H PRN PRN PRN Reason: Pain Score 1-10 Last Admin: 09/14/20 00:14 Dose: 600 mg Documented by: Methylergonovine Maleate (Methylergonovine 0.2 Mg/Ml Ampul) 0.2 mg IM X1 PRN PRN Reason: Excess bleeding/uterine atony Ondansetron HCl (Ondansetron 4 Mg/2 Ml Vial) 4 mg IV Q4H PRN PRN PRN Reason: Nausea Prednisone (Pred[facility]one 5 Mg Tablet) [facility] Last Admin: 09/14/20 08:04 Dose: 5 mg Documented by: Senna/Docusate Sodium (Senna/Docusate Sodium 1 Tablet) 1 - 2 tablet PO DAILY PRN PRN PRN Reason: Constipation Simethicone (Simethicone 80 Mg Tablet) 80 mg PO PCHS PRN PRN Reason: Indigestion/Stomach pain Sodium Chloride (0.9% Saline Lock 10 Ml Syringe) 5 - 15 ml IV UD PRN PRN Reason: SALINE FLUSH Last Admin: 09/12/20 19:31 Dose: 10 ml Documented by: Medical Necessity - Tobacco Use Smoking Status: Former smoker Assessment/Plan All Active Problems (Last Updated 02/24/20 @ 13:[address] Ling Alcazar MD) Hyperemesis gravidarum with dehydration (Acute) Sinus tachycardia seen on threat monitoring analyst (Acute) 8 weeks gestation of (Acute) 36 weeks gestation of (Acute) 37 weeks gestation of (Acute) Preeclampsia (Acute) day two. Breast-feeding. Pre-ED without severe features, blood pressures within normal limits and patient is asymptomatic. Okay to discharge home with blood pressure check in 1 week, discharge precautions given. Patient Covid +4 weeks ago with chronic cough, continue as needed inhaler and continue steroid taper 5 mg daily for 3 days.
== END 2020-09-14 13:50 | disposition home or self-care (01) | DRG 806 ==
PROVIDERS: Obstetrics & Gynecology; Admitting Provider Student in an Organized Health Care Education/Training Program; Visit Provider Student in an Organized Health Care Education/Training Program
DX: O14.04 Mild to moderate pre-eclampsia, complicating childbirth (principal); O98.52 Other viral diseases complicating childbirth; Z37.0 Single live birth; Z3A.37 37 weeks gestation of pregnancy; Z86.16 Personal history of COVID-19; B00.9 Herpesviral infection, unspecified; Z87.891 Personal history of nicotine dependence; O70.1 Second degree perineal laceration during delivery
CPT/HCPCS: 59025; 59050; 85025; 86850; 86900; 86901; 94640; 99218; J7120; A4216; G0378; J2405

== ENCOUNTER → 2021-07-02 15:44 | Outpatient (CLI) | payer OTHER, SELFPAY ==
[2021-07-02 16:48] LABS: Progesterone Level 5.64 ng/mL (See Comment); T3 Total - Triiodothyronine 1.17 ng/mL (0.6-1.81); Vitamin B12 664 pg/mL (211-911); Vitamin D,25 Hydroxy 23.8 ng/mL
[2021-07-02 16:52] LABS: Free T3 2.8 pg/mL (2.18-3.98); T4 Free Direct 1.03 ng/dL (0.76-1.46); Thyroid Stim Hormone (TSH) 1.98 uIU/mL (0.358-3.74)
[2021-07-06 13:31] LABS: ANTINUCLEAR ANTIBODIES DIRECT Negative (Negative)
[2021-07-10 20:07] LABS: Thyroid Peroxidase AB 422 IU/mL (0-34)
[2021-07-10 22:24] LABS: T3 Reverse 15.6 ng/dL (9.2-24.1); Thyroglobulin Antibody 2.1 IU/mL (0.0-0.9)
== END ==
PROVIDERS: Visit Provider Obstetrics & Gynecology
DX: R53.83 Other fatigue (principal); R68.82 Decreased libido; L65.9 Nonscarring hair loss, unspecified
CPT/HCPCS: 36415; 82306; 82607; 84144; 84439; 84443; 84480; 84481; 84482; 86038; 86225; 86235; 86376; 86800

== ENCOUNTER 2021-10-15 09:51 | Outpatient (CLI) | payer BC, SELFPAY ==
[2021-10-15 11:33] LABS: Free T3 3.1 pg/mL (2.18-3.98); T4 Free Direct 1.05 ng/dL (0.76-1.46); Thyroid Stim Hormone (TSH) 1.38 uIU/mL (0.358-3.74)
[2021-10-21 13:38] LABS: HPV Reflexed? NOT INDICATED
== END 2021-10-15 23:59 | disposition home or self-care (01) ==
PROVIDERS: Visit Provider Obstetrics & Gynecology
DX: R53.83 Other fatigue (principal); Z12.4 Encounter for screening for malignant neoplasm of cervix
CPT/HCPCS: 36415; 84439; 84443; 84481; 88175; G0145